=== PATIENT | female | born 1955 | race Caucasian/White ===

== ENCOUNTER → 2016-12-02 | Outpatient (CLI) | payer OTHER, MEDICAID | LOC: BHLMT 11:00 | PROVIDERS: ATTEND Internal Medicine Interventional Cardiology | DX: I50.32 Chronic diastolic (congestive) heart failure (principal); I35.1 Nonrheumatic aortic (valve) insufficiency; I10 Essential (primary) hypertension | CPT/HCPCS: 93005-PO ==

== ENCOUNTER → 2016-12-15 | Outpatient (CLI) | payer OTHER, MEDICAID | LOC: BHLMT 10:45 | PROVIDERS: ATTEND Internal Medicine Cardiovascular Disease | DX: I50.9 Heart failure, unspecified (principal) | CPT/HCPCS: 93306-PO ==

== ENCOUNTER 2017-07-21 17:35 | Emergency (ER) | payer OTHER, MEDICAID ==
[2017-07-21 19:04] LABS: ADD DIFF? YES; ADD MORPH? NO; ADD SCAN? NO; ATYPICAL LYMPHOCYTE FLAG 0 (0-99); FRAGMENT RBC FLAG 0 (0-99); HEMATOCRIT 44.1 % (38.0-47.0); HEMOGLOBIN 14.4 g/dL (12.6-16.3); LEFT SHIFT FLG 20 (0-99); LIPEMIA HEMOLYSIS FLAG 80 (0-99); MEAN CELL HEMOGLOBIN 29.6 pg (27.9-34.1); MEAN CELL HEMOGLOBIN CONCENTR. 32.7 g/dL (32.4-36.7); MEAN CELL VOLUME 90.7 fL (81.5-99.8); PLATELET CLUMPS FLAG 0 (0-99); PLATELET COUNT 384 10^3/uL (150-400); RED BLOOD CELL COUNT 4.86 10^6/uL (4.18-5.33); RED CELL DISTRIBUTION WIDTH 14.4 % (11.5-15.2)
--- NOTE | 2017-07-21 19:12 | EDPHY ---
HPI/HX/ROS/PE/MDM Narrative: CHIEF COMPLAINT: Inability to urinate HISTORY OF PRESENT ILLNESS: The patient is a chronically ill 61 y/o female with a history of multiple chronic diseases including renal insufficiency presents complaining of lack of urge to urinate and inability to urinate onset 4:00 PM, 3 hours ago. She has an extensive history including pancreatic transplant, COPD, renal insufficiency, and shingles. She notes less frequent urge to urinate over the last few days. Today, she urinated at 5:00 AM and again at 4:00 PM, both times only a small amount of urine was produce. She has associated nausea. She denies any abdominal pain, fever, or any other symptoms. She report improved edema over the past few days. She also reports lightheadedness when standing up feels that she might be dehydrated. No fever, chills, chest pain, shortness of breath, palpitations, vomiting, diarrhea, headache, lightheadedness. REVIEW OF SYSTEMS: Aside from elements discussed in the HPI, a comprehensive 10-point review of systems was reviewed and is negative. PAST MEDICAL HISTORY: Pancreatic transplant, COPD, renal insufficiency, shingles SOCIAL HISTORY: Service dog, friend at bedside, lives in [place] VITAL SIGNS: Reviewed by me GENERAL: Somewhat debilitated appearing female, resting comfortably in no respiratory distress. HEENT: Atraumatic. Eyes: No icterus, no injection. Mouth: moist mucous membranes. No erythema or lesions. Neck: supple with no adenopathy. LUNGS: Clear to auscultation bilaterally, no wheezes, rhonchi or rales. Persistent cough following deep inhalation. CARDIAC: Regular rate and rhythm, no rubs, murmurs or gallops. ABDOMEN: Soft, nontender, nondistended, bowel sounds normal. BACK: No CVA tenderness. EXTREMITIES: No trauma. No edema. Range of motion is normal throughout. NEURO: Alert and oriented, grossly nonfocal. SKIN: Warm and dry, no rash. PSYCHIATRIC: Normal mentation, no agitation. Portions of this note were transcribed by a medical technicians. I personally performed a history, physical exam, medical decision making, and confirmed accuracy of information the transcribed note. ED Course: The patient is a 61 y/o female with a history of renal insufficiency, COPD, pancreatic transplant, and shingles complaining of inability to urinate or urge to urinate for the last three hours. She noticed a decrease in her fluid intake and her urine output for the past few days. She has some nausea and abdominal pain. She denies any other symptoms Patient had IV placed. She received a L of normal saline[place] [address]. Patient's creatinine is 1.8 which is in her baseline. Urinalysis appears to be infected potentially with 25-50 white cells per high-power field. I discussed these results with the patient. She states that her urologist does not like her to take antibiotics unless she has a culture proven urinary tract infection. Patient was reassured by the relatively baseline creatinine level. She does reports he still feels somewhat lightheaded when she stands up wants her orthostatic vital signs rechecked. This was done. Patient does have a significant drop in her blood pressure, however, she starts at a baseline quite elevated systolic blood pressure. Heart rate increases slightly. She does feel somewhat symptomatic. She was offered an additional L fluid which she declined. I discussed the results of her work up with her and feel she is safe to return home. She agrees with this course of action. Discharge instructions, followup instructions, and return precautions given. MDM: Differential diagnoses for the patient's symptom complex was considered including but not limited to urinary tract infection, dehydration, acute on chronic renal insufficiency, urinary retention, outflow obstruction.. - Data Points Laboratory Results: Laboratory Results 07/21/17 18:53 07/21/17 18:53 Medications Given: Discontinued Medications Cephalexin HCl (Keflex) 500 mg PO EDNOW ONE PRN Reason: Protocol Stop: 07/21/17 20:54 Last Admin: 07/21/17 21:23 Dose: 500 mg Sodium Chloride (Ns) 1,000 mls @ 0 mls/hr IV ONCE ONE; Wide Open PRN Reason: Protocol Stop: 07/21/17 20:07 Last Admin: 07/21/17 20:11 Dose: 1,000 mls General Time Seen by Provider: 07/21/17 18:34 Initial Vital Signs: Initial Vital Signs Temperature (C) 36.7 C 07/21/17 17:40 Heart Rate 88 07/21/17 17:40 Respiratory Rate 18 07/21/17 17:40 Blood Pressure 172/98 H 07/21/17 17:40 O2 Sat (%) 92 07/21/17 17:40 O2 Delivery Mode Room Air Allergies/Adverse Reactions: metoclopramide [From Reglan] Allergy (Intermediate, Verified 07/21/17 17:50) tardic dyskinesia "all pain meds" Allergy (Intermediate, Uncoded 07/21/17 17:50) mod to severe n/v Home Medications: Medication Instructions Recorded Cephalexin [Keflex] 500 mg PO TID #21 cap 07/21/17 Pt Has List 07/21/17 Departure - Departure Disposition: Home, Routine, Self-Care Clinical Impression: Renal insufficiency, Dehydration UTI (urinary tract infection) Qualifiers: Urinary tract infection type: acute cystitis Hematuria presence: without hematuria Qualified Code(s): N30.00 - Acute cystitis without hematuria Condition: Good Instructions: Dehydration (ED), Urinary Tract Infection in Women (ED) Additional Instructions: 1. Take prescribed medications as directed. Discontinue antibiotic if results of urine culture are negative. Ensure adequate fluid intake. 2. Follow-up with your primary care provider for unimproved symptoms in 3-5 days. 3. Return to the ED for worsening of condition. Referrals: NONE *PRIMARY CARE P,. [Primary Care Provider] - As per Instructions Veronika Schultz MD [Medical Doctor] - As per Instructions Prescriptions: Cephalexin [Keflex] 500 mg PO TID #21 cap Report Scribed for: Katrin Sorensen Report Scribed by: Palak Gordon Date of Report: 07/21/17 Time of Report: 18:37
[2017-07-21 19:22] LABS: ANION GAP 13 mEq/L (8-16); CALCIUM 9.2 mg/dL (8.5-10.4); CARBON DIOXIDE 20 mEq/l (22-31); CHLORIDE 106 mEq/L (97-110); CREATININE 1.8 mg/dL (0.6-1.0); GLOMERULAR FILTRATION RATE 28; GLUCOSE 96 mg/dL (70-100); POTASSIUM 4.6 mEq/L (3.5-5.2); SODIUM 139 mEq/L (134-144)
[2017-07-21 19:43] LABS: PLATELET ESTIMATE ADEQUATE (ADEQ)
[2017-07-21] MEDS ORDERED: NS 1,000 ML IV ONE (20:06)
[2017-07-21 20:14] LABS: COLOR YELLOW; LEUKOCYTE ESTERASE,URINE 2+ (NEGATIVE); NITRITE,URINE NEGATIVE (NEGATIVE)
[2017-07-21 20:18] LABS: MUCUS TRACE /lpf (NONE-1+); WBC,URINE 25-50 /hpf (0-3)
[2017-07-21] MEDS ORDERED: CEPHALEXIN 500 MG CAP PO ONE (20:53)
[2017-07-21 21:27] VITALS: RESP 19; TEMP 98.2; O2SAT 95
[2017-07-21 21:34] VITALS: BP 204/106; PULSE 90
== END 2017-07-21 21:32 | disposition home or self-care (01) ==
DX: N30.00 Acute cystitis without hematuria (principal); E86.0 Dehydration; N28.9 Disorder of kidney and ureter, unspecified; B96.89 Other specified bacterial agents as the cause of diseases classified elsewhere; E86.9 Volume depletion, unspecified; J44.9 Chronic obstructive pulmonary disease, unspecified

== ENCOUNTER → 2017-09-14 | Outpatient (CLI) | payer OTHER, MEDICAID | LOC: BHLMT 15:30 | PROVIDERS: ATTEND Internal Medicine | DX: I50.9 Heart failure, unspecified (principal) | CPT/HCPCS: 93306-PO ==

== ENCOUNTER → 2017-10-12 | Outpatient (CLI) | payer OTHER, MEDICAID | LOC: BHLMT 11:00 | PROVIDERS: ATTEND Internal Medicine Interventional Cardiology | DX: R00.2 Palpitations (principal) | CPT/HCPCS: 93225-PO; 93226-PO ==

== ENCOUNTER → 2018-12-08 | Outpatient (CLI) | payer OTHER, MEDICAID | LOC: BHFA 14:45 | PROVIDERS: ATTEND Internal Medicine Interventional Cardiology | DX: I50.9 Heart failure, unspecified (principal) | CPT/HCPCS: 93306-PO ==

== ENCOUNTER 2019-01-06 08:03 | Observation (INO) | payer OTHER, MEDICAID ==
[2019-01-06] MEDS ORDERED: FAMOTIDINE 20 MG TAB PO ONE (08:08)
[2019-01-06] MEDS ORDERED: NS 1,000 ML IV ONE (08:08)
[2019-01-06] MEDS ORDERED: ASPIRIN EC 325 MG TAB PO ONE (08:08)
[2019-01-06] MEDS ORDERED: diphenhydrAMINE 25 MG CAP PO ONE (08:08)
[2019-01-06] MEDS ORDERED: DIAZEPAM 5 MG TAB PO ONE (08:08)
[2019-01-06 08:56] LABS: PLATELET COUNT 326 10^3/uL (150-400)
[2019-01-06] MEDS ORDERED: fentaNYL 100 MCG/2 ML INJ ONE (08:56)
[2019-01-06] MEDS ORDERED: HEPARIN 10,000 UNIT/10 ML MDV (1,000 UNIT/ML) ONE (08:56)
[2019-01-06] MEDS ORDERED: LIDOCAINE 1% 300 MG/30 ML SDV ONE (08:56)
[2019-01-06] MEDS ORDERED: VERAPAMIL 5 MG/2 ML VIAL ONE (08:56)
[2019-01-06] MEDS ORDERED: MIDAZOLAM 2 MG/2 ML VIAL ONE (08:56)
[2019-01-06] MEDS ORDERED: IOPAMIDOL (ISOVUE-370) 150 ML BTL IV ONE (08:56)
[2019-01-06 09:03] LABS: INR 0.91 (0.83-1.16); PROTIME(PATIENT) 11.9 SEC (12.0-15.0)
--- NOTE | 2019-01-06 09:53 | CPEKG ---
Test Reason : OPEN Blood Pressure : / mmHG Vent. Rate : 087 BPM Atrial Rate : 087 BPM P-R Int : 155 ms QRS Dur : 077 ms QT Int : 388 ms P-R-T Axes : 037 -12 038 degrees QTc Int : 467 ms Sinus rhythm Probable left atrial enlargement Inferior infarct, old Confirmed by Brandt Yeboah ([id number]) on 01/06/2019 9:52:59 AM Referred By: Brian Streeter Confirmed By:Brandt Yeboah
--- NOTE | 2019-01-06 11:04 | PDHPUP ---
History & Physical Update H&P update statement: This history and physical update is based on an assessment of the patient which was completed after admission or registration (within 24 hours), but prior to the surgery/procedure. H&P update: H&P reviewed & patient examined, no change in patient's condition since H&P completed
--- NOTE | 2019-01-06 11:04 | PDPROPOC ---
Sedation Plan of Care Sedation Plan of Care: vital signs stable, mental status noted, patient educated of risks, benefits, alternatives, patient can tolerate sedation ASA Classification: ASA 2 Planned drugs: fentanyl, midazolam Mallampati Score: Class 2 Mallampati Reference Image: Patient passed 3-3-2 rule?: Yes
[2019-01-06] MEDS ORDERED: ONDANSETRON 4 MG/2 ML VIAL ONE (11:46)
[2019-01-06] MEDS ORDERED: ATROPINE SULFATE 1 MG/10 ML SYR ONE (12:37)
[2019-01-06] MEDS ORDERED: NITROGLYCERIN 0.4 MG BTL SL PRN (12:49)
[2019-01-06] MEDS ORDERED: ONDANSETRON 4 MG/2 ML VIAL IVP PRN (12:49)
[2019-01-06] MEDS ORDERED: ONDANSETRON DISINTEGRATING 4 MG TAB PO PRN (12:49)
[2019-01-06] MEDS ORDERED: ATROPINE SULFATE 1 MG/10 ML SYR IVP PRN (12:49)
[2019-01-06] MEDS ORDERED: TEARS/DEXTRAN 70/HYPROMELLOSE 15 ML OPHT.BTL EACHEYE PRN (12:52)
[2019-01-06] MEDS ORDERED: NS 1,000 ML IV SCH (13:00)
--- NOTE | 2019-01-06 13:03 | PDDXCAT ---
Diagnostic Cath Note - . Date: 01/06/19 Methods Time Analyst: Ferdinand Indication: other (Aortic regurgitation with planned AVR.) - Procedure Access: right groin Procedure: left heart catheterization, coronary angiography, left ventriculogram , right heart catheterization - Materials Left Heart Cath size: 6F Left Heart Cath materials: standard multipack (JL4, JR4, pigtail) Right Heart Cath size: 7F Right Heart Cath materials: PWP catheter - Findings-Left Heart Catheterization LM: Angiographically normal. LAD: Angiographically normal. LCX: Angiographically normal. RCA: Angiographically normal. EDP: 8 mmHg LVEF: 70% Wall motion: Normal - Findings-Right Heart Catheterization RA: 8 mmHg RV: 38/4 mmHg PA: 38/14/24 mmHg O2 sat 79.0 % PAOP: 12 mmHg AO: 156/60/96 mmHg O2 sat 96.0 % CO: 7.12 L/min CI: 3.69 L/min/sq mtr Complications: None Estimated blood loss: <50ml Closure method: Angioseal Assessment: 1) Angiographically normal coronary arteries. 2) Normal left ventricular systolic function. 3) Borderline pulmonary hypertension. Plan: She is scheduled for aortic valve replacement with Dr. Elise on 01/27/2019. Patient Problems: Problems Problem Status Onset Dehydration Acute Renal insufficiency Acute
[2019-01-06] MEDS: ACETAMINOPHEN 325 MG TAB PO PRN ×2 (14:06→23:35)
[2019-01-06] MEDS: CYCLOBENZAPRINE 10 MG TAB PO SCH ×2 (15:00→23:34)
--- NOTE | 2019-01-06 15:01 | ASMTCMCOM ---
CM Note CM Note Notes: Pt is a 63 yo F who presents with aortic regurgitation underwent left and right heart cath, coronary angiography, and left ventriculogram. Cardiac rehab consult ordered, likely discharged independently with outpatient follow-up as indicated. CM available if needs arise. Plan: Independent Date Signed: 01/06/2019 03:00 PM Electronically Signed By:ESTHER Infante
[2019-01-06] MEDS ORDERED: CARBOXYMETHYLCELLULOSE 0.5% 0.4 ML DROPERETTE EACHEYE PRN (15:30)
[2019-01-06] MEDS ORDERED: NYSTATIN SUSP 500000 UNIT/5 ML UD LIQ PO SCH (16:00)
[2019-01-06] MEDS: hydrOXYzine HCL 10 MG TAB PO SCH ×2 (17:39→23:37)
[2019-01-06] MEDS: Lipase/Protease/Amylase [Creon Dr 36,000 Units Capsule] PO SCH (17:40)
[2019-01-06] MEDS ORDERED: LOSARTAN POTASSIUM 25 MG TAB PO SCH (18:00)
[2019-01-06] MEDS: lamoTRIgine 100 MG TAB PO SCH (18:17)
[2019-01-06] MEDS: MYCOPHENOLATE MOFETIL 250 MG CAP PO SCH (18:18)
[2019-01-06] MEDS ORDERED: MELATONIN 3 MG TAB PO SCH (21:00)
[2019-01-06] MEDS ORDERED: ATORVASTATIN CALCIUM 20 MG TAB PO SCH (21:00)
[2019-01-06] MEDS ORDERED: PRAZOSIN HCL 1 MG CAP PO SCH (21:00)
[2019-01-06] MEDS ORDERED: TEMAZEPAM 15 MG CAP PO SCH (21:00)
[2019-01-06] MEDS ORDERED: TIMOLOL 0.5% 15 ML OPHT.BTL LEFTEYE SCH (21:00)
[2019-01-06] MEDS ORDERED: PREDNISOLONE ACETATE LEFTEYE SCH (21:00)
[2019-01-06] MEDS: NYSTATIN POWDER 15 GM BTL TP SCH (23:37)
[2019-01-06] MEDS: TACROLIMUS 1 MG CAP PO SCH (23:38)
[2019-01-07] MEDS: CYCLOBENZAPRINE 10 MG TAB PO SCH ×2 (06:22→12:45)
[2019-01-07 07:24] VITALS: BP 123/77
[2019-01-07] MEDS ORDERED: DULoxetine 30 MG CAP PO SCH (09:00)
[2019-01-07] MEDS ORDERED: PANTOPRAZOLE SODIUM 40 MG TAB PO SCH (09:00)
[2019-01-07] MEDS ORDERED: predniSONE 5 MG TAB PO SCH (09:00)
[2019-01-07] MEDS: NYSTATIN POWDER 15 GM BTL TP SCH (09:35)
[2019-01-07] MEDS: lamoTRIgine 100 MG TAB PO SCH (09:48)
[2019-01-07] MEDS: MYCOPHENOLATE MOFETIL 250 MG CAP PO SCH (09:48)
[2019-01-07] MEDS: TACROLIMUS 1 MG CAP PO SCH (09:48)
[2019-01-07] MEDS: Lipase/Protease/Amylase [Creon Dr 36,000 Units Capsule] PO SCH ×2 (09:48→12:45)
[2019-01-07] MEDS: hydrOXYzine HCL 10 MG TAB PO SCH (09:48)
--- NOTE | 2019-01-07 10:51 | PDDCSUM ---
Discharge Summary Discharge Summary: 63-year-old female admitted for right and left heart catheterization prior to planned aortic valve replacement surgery. She has a history of hypertension, hyperlipidemia, diastolic heart failure and aortic insufficiency. She has planned aortic valve surgery with Dr. Tony Seo. She was admitted for right and left heart catheterization prior to this surgery. Patient has done well overnight. She does complain of pain in her right gluteus area. On exam, vital signs are stable, lungs clear to auscultation, CVS S1-S2 regular rate and rhythm. Right groin site was inspected, there is no bleeding or hematoma. Patient has been asked to take her bandage off and shower. Right gluteal site was also inspected, there is no hematoma but the patient does have tenderness. Patient is requesting that creatinine be checked prior to discharge, this has been ordered stat and I will be called with the results prior to discharge. Please refer to home med reconciliation, no changes in home medications Patient will continue regular follow-up with Dr. Brian Streeter. As mentioned above, she has aortic valve surgery planned with Dr. Tony Seo.
--- NOTE | 2019-01-07 12:32 | ASDISCHSUM ---
Discharge Information Plan Status:Home with No Needs Medically Cleared to Leave:01/07/2019 Discharge Date:01/07/2019 CM D/C Disposition:Home, Routine, Self-Care ADT D/C Disposition:Home, Routine, Self-Care Projected Discharge Date:01/07/2019 Transportation at D/C:Friend Discharge Delay Reason: Follow-Up Date:01/07/2019 Discharge Slot: Final Diagnosis: Placement Information Patient Contact Information Contact Name:KARYNA Relationship:Daughter Address: City: [facility] Phone: State/Zip Code: Email: Financial Information Financial Class:Medicare Primary Plan Desc:MEDICARE OUTPATIENT Primary Plan Number:[id number] Secondary Plan Desc:MEDICAID [place] Secondary Plan Number:[id number] Assessment Information BC CM Progress Note CM Note CM Note Notes: Pt is a 63 yo F who presents with aortic regurgitation underwent left and right heart cath, coronary angiography, and left ventriculogram. Cardiac rehab consult ordered, likely discharged independently with outpatient follow-up as indicated. CM available if needs arise. Plan: Independent Date Signed: 01/06/2019 03:00 PM Electronically Signed By:ESTHER Infante Intervention Information Intervention Type:XIONG-Refused Date of Service:01/07/2019 12:30 PM Patient Type:Observation Staff Member:ERIBERTO Denney, Marcia Hours: Discipline: Severity: Comment:Pt refused to sign. Left copy with pt .
[2019-01-09] MEDS ORDERED: FUROSEMIDE 40 MG TAB PO SCH (09:00)
[2019-01-09] MEDS ORDERED: SULFAMETHOX/TMP 400/80 MG 1 TAB PO SCH (09:00)
== END 2019-01-07 13:30 | disposition home or self-care (01) ==
LOC: FCATH 08:03 → F2W 12:49
PROVIDERS: ADMIT Internal Medicine Interventional Cardiology; ATTEND Internal Medicine Cardiovascular Disease
PROC: 4A023N8 Measurement of Cardiac Sampling and Pressure, Bilateral, Percutaneous Approach (ICD-10-PCS; principal; 2019-01-06)
PROC: B2111ZZ Fluoroscopy of Multiple Coronary Arteries using Low Osmolar Contrast (ICD-10-PCS; principal; 2019-01-06)
PROC: B2151ZZ Fluoroscopy of Left Heart using Low Osmolar Contrast (ICD-10-PCS; principal; 2019-01-06)
DX: I35.1 Nonrheumatic aortic (valve) insufficiency (principal); I49.1 Atrial premature depolarization; I49.3 Ventricular premature depolarization; I11.0 Hypertensive heart disease with heart failure; E78.5 Hyperlipidemia, unspecified; I50.32 Chronic diastolic (congestive) heart failure; N18.9 Chronic kidney disease, unspecified; Z98.84 Bariatric surgery status; Z94.83 Pancreas transplant status
CPT/HCPCS: 93005; 93460; C1760; J1644; J2250; J2405; J3010; Q9967; J0461

== ENCOUNTER 2019-01-27 04:53 | Inpatient (IN) | payer OTHER, MEDICAID ==
[2019-01-27] MEDS ORDERED: NOREPINEPHRINE BITARTRATE 16 MG in NS 250 ML IV ONE (06:00)
[2019-01-27] MEDS ORDERED: MANNITOL 25% 12.5 GM/50 ML VIAL IVP ONE (06:00)
[2019-01-27] MEDS ORDERED: INSULIN REGULAR HUMAN 100 UNIT in NS 100 ML IV ONE (06:00)
[2019-01-27] MEDS ORDERED: CARDIOPLEGIC SOLUTION 1,052.8 ML PF ONE (06:00)
[2019-01-27] MEDS ORDERED: PHENYLEPHRINE HCL 50 MG in NS 250 ML IV ONE (06:00)
[2019-01-27] MEDS ORDERED: AMINOCAPROIC ACID 5 GM/20 ML VIAL IV ONE (06:03)
[2019-01-27] MEDS ORDERED: MUPIROCIN 2% 22 GM OINT NS ONE (06:03)
[2019-01-27] MEDS ORDERED: CITRATE DEXTROSE SOLN 500 ML BAG MISC ONE (06:03)
[2019-01-27] MEDS ORDERED: DOBUTamine 500 MG in D5W 250 ML IV SCH (06:03)
[2019-01-27] MEDS ORDERED: LR 1,000 ML IV ONE (06:04)
[2019-01-27] MEDS ORDERED: SODIUM BICARBONATE 50 MEQ/50 ML SYR ONE (06:44)
[2019-01-27] MEDS ORDERED: PROTAMINE SULFATE 50 MG/5 ML VIAL IVP ONE (06:44)
[2019-01-27] MEDS ORDERED: ALBUMIN 5% 250 ML BOTTLE IV ONE (06:44)
[2019-01-27] MEDS ORDERED: AMINOCAPROIC ACID 5 GM/20 ML VIAL ONE (06:45)
[2019-01-27] MEDS ORDERED: MILRINONE/DEXTROSE/100 ML BAG IV ONE (06:45)
[2019-01-27] MEDS ORDERED: CALCIUM CHLORIDE 1 GM/10 ML INJ ONE (06:45)
[2019-01-27] MEDS ORDERED: NA BICARBONATE 50 MEQ/50 ML VIAL ONE ×2 (06:45→11:33)
[2019-01-27] MEDS ORDERED: AMIODARONE HCL 150 MG/3 ML VIAL ONE (06:46)
[2019-01-27] MEDS ORDERED: HEPARIN 10,000 UNIT/10 ML MDV (1,000 UNIT/ML) ONE (06:46)
[2019-01-27] MEDS ORDERED: LIDOCAINE 2% 100 MG/5 ML SYR ONE (06:46)
[2019-01-27] MEDS ORDERED: niCARdipine/NACL/200 ML BAG IV ONE (06:46)
[2019-01-27] MEDS ORDERED: CITRATE DEXTROSE SOLN 500 ML BAG ONE (06:46)
[2019-01-27] MEDS ORDERED: DOPamine/DEXTROSE 400 MG/250 ML BAG IV ONE (06:46)
[2019-01-27] MEDS ORDERED: ceFAZolin 1 GM VIAL ONE (06:47)
[2019-01-27] MEDS ORDERED: MAGNESIUM SULFATE 1 GM/2 ML VIAL ONE (06:47)
[2019-01-27] MEDS ORDERED: ADENOSINE 6 MG/2 ML VIAL ONE (06:47)
[2019-01-27] MEDS ORDERED: NITROGLYCERIN/D5W 50 MG/250 ML BOTTLE IV ONE (06:47)
[2019-01-27] MEDS ORDERED: methylPREDNISolone SOD SUCC 1 GM/8 ML VIAL ONE (06:47)
[2019-01-27] MEDS ORDERED: MIDAZOLAM 2 MG/2 ML VIAL IVP ONE (06:57)
[2019-01-27] MEDS ORDERED: NS 1,000 ML IV ONE (06:57)
--- NOTE | 2019-01-27 06:57 | PDANEPAE ---
ANE History of Present Illness 63 yo for avr ANE Past Medical History - Cardiovascular History Hx Hypertension: Yes Hx Arrhythmias: No Hx Chest Pain: No Hx Coronary Artery / Peripheral Vascular Disease: No Hx CHF / Valvular Disease: Yes Hx Palpitations: No - Pulmonary History Hx COPD: Yes Hx Asthma/Reactive Airway Disease: No Hx Recent Upper Respiratory Infection: No Hx Oxygen in Use at Home: Yes O2 in Use at Home (L/minute): 2.L 24/7 Hx Sleep Apnea: Yes Sleep Apnea Screening Result - Last Documented: Positive Pulmonary History Comment: PHTN - Neurologic History Hx Cerebrovascular Accident: No Hx Seizures: Yes Hx Dementia: No Neurologic History Comment: accident prior to 2001 - Endocrine History Hx Diabetes: No Endocrine History Comment: pt wit diabetic complications - Renal History Hx Renal Disorders: Yes Renal History Comment: stage 4 - Liver History Hx Hepatic Disorders: No - Neurological & Psychiatric Hx Hx Neurological and Psychiatric Disorders: Yes Neurological / Psychiatric History Comment: peripheral and autonomic neuropathy. Chronic depression - Cancer History Hx Cancer: No - Congenital Disorder History Hx Congenital Disorders: No - GI History Hx Gastrointestinal Disorders: Yes Gastrointestinal History Comment: complete ileus/gastroperisis - Other Health History Other Health History: macro degeneration. cataract to rigt eye. blind in left eye. bruises easily - Chronic Pain History Chronic Pain: Yes - Surgical History Prior Surgeries: bowel resection . pancreatic transplant 2001. gastric stimulator. gall bladder 1998 ANE Review of Systems Review of Systems: - Exercise capacity METS (RN): 2 METS ANE Patient History - Allergies Allergies/Adverse Reactions: metoclopramide [From Reglan] Allergy (Intermediate, Verified 07/21/17 17:50) tardic dyskinesia aspirin Allergy (Verified 01/06/19 13:44) Other-Enter Comments ibuprofen Allergy (Verified 01/06/19 13:45) Other-Enter Comments ranitidine [From Zantac] Allergy (Verified 01/06/19 13:45) "all pain meds" Allergy (Intermediate, Uncoded 07/21/17 17:50) mod to severe n/v paper tape Allergy (Uncoded 01/06/19 13:45) - Home Medications Home Medications: Acetaminophen [Tylenol ES 500 mg (*)] 1,000 mg PO BID 01/06/19 [Last Taken 01/26 21:00] Atorvastatin Calcium [Lipitor 20 mg (*)] 20 mg PO HS 01/06/19 [Last Taken 07:00] Cyclobenzaprine [Cyclobenzaprine HCl] 5 mg PO QID 01/06/19 [Last Taken 01/26/19 21:00] DULoxetine [Cymbalta 30 MG (*)] 30 mg PO DAILY 01/06/19 [Last Taken 01/26/19] Dexlansoprazole [Dexilant] 60 mg PO DAILY 01/06/19 [Last Taken 01/26/19 07:00] Furosemide [Lasix 40 MG (*)] 40 mg PO MOWEFR@01/06/19 [Last Taken 01/25/19] Herbals/Supplements -Info Only 1 ea PO DAILY 01/06/19 [Last Taken 01/26/19] Lipase/Protease/Amylase [Creon Dr 36,000 Units Capsule] 2 each PO TIDMEAL [Last Taken 01/26/19] Losartan Potassium [Cozaar 25 mg (*)] 25 mg PO DAILY@01/06/19 [Last Taken 07:00] Melatonin [Melatonin 5 mg] 10 mg PO HS 01/06/19 [Last Taken 01/26/19 21:00] Mycophenolate Mofetil [Cellcept 250 mg (RX)] 250 mg PO BID@01/06/19 [Last Taken 01/26/19 19:00] Nystatin Powder [Mycostatin Powder (RX)] 1 su TOP TID 01/06/19 [Last Taken ] Prazosin HCl [Minipress 1mg (*)] 1 mg PO HS 01/06/19 [Last Taken 01/26/19 21:00] Prednisolone Acetate/Pf [Prednisolone Acet 1% Eye Drop] 1 drop LEFTEYE HS [Last Taken 01/26/19] Sulfamethox/Tmp 400/80 mg [Sulfamethoxazole-Tmp SS] 1 each PO MOWEFR@ [Last Taken 01/25/19] Tacrolimus 3 mg PO BID 01/06/19 [Last Taken 01/26/19 19:00] Tears/Dextran 70/Hypromellose [Natural Balance Tears (*)] 1 drop EACHEYE PRN PRN 01/06/19 [Last Taken 01/26/19] Temazepam [Restoril 15 MG (*)] 15 mg PO HS 01/06/19 [Last Taken 01/26/19 21:00] Timolol 0.5% [TIMOPTIC 0.5% (*)] 1 drops LEFTEYE HS 01/06/19 [Last Taken ] hydrOXYzine HCL 10 mg PO TID 01/06/19 [Last Taken 01/26/19 21:00] lamOTRIGine [Lamotrigine] 150 mg PO BID@,18 01/06/19 [Last Taken 01/26/19 19: 00] predniSONE 5 mg PO DAILY 01/06/19 [Last Taken 01/26/19 07:00] Scopolamine 01/27/19 [Last Taken 01/26/19] - NPO status NPO Since - Liquids (Date): 01/26/19 NPO Since - Liquids (Time): 21:00 NPO Since - Solids (Date): 01/26/19 NPO Since - Solids (Time): 19:30 - Anes Hx Anes Hx: no prior problems - Smoking Hx Smoking Status: Never smoked - Family Anes Hx Family Hx Anesthesia Complications: daughter very slow to wake up ANE Labs/Vital Signs - Vital Signs Blood Pressure: 130/81 Heart Rate: 86 Respiratory Rate: 14 O2 Sat (%): 93 Height: 5 ft Weight: 98.43 kg ANE Physical Exam - Airway Neck exam: FROM Mallampati Score: Class 2 Mouth exam: normal dental/mouth exam - Pulmonary Pulmonary: no respiratory distress - Cardiovascular Cardiovascular: regular rate and rhythym - ASA Status ASA Status: IV ANE Anesthesia Plan Anesthesia Plan: general endotracheal anesthesia Lines/Monitors: arterial line, central line, SATHISH Specialized Airway: video laryngoscope
[2019-01-27] MEDS: ceFAZolin 2 GM/DEXTROSE 100 ML IV ONE ×2 (06:59→07:31)
--- NOTE | 2019-01-27 07:06 | PDHPUP ---
History & Physical Update H&P update statement: This history and physical update is based on an assessment of the patient which was completed after admission or registration (within 24 hours), but prior to the surgery/procedure. H&P update: H&P reviewed & patient examined, changes noted (worsening BLE edema , gastric stimulator shut off 01/26/19)
[2019-01-27] MEDS ORDERED: PROPOFOL/EMULSION 500 MG/50 ML BOTTLE IV ONE ×2 (07:07→09:14)
[2019-01-27] MEDS ORDERED: MIDAZOLAM 2 MG/2 ML VIAL ONE (07:07)
[2019-01-27] MEDS ORDERED: TEARS/DEXTRAN 70/HYPROMELLOSE 15 ML OPHT.BTL EACHEYE PRN (07:54)
[2019-01-27] MEDS ORDERED: POTASSIUM Cl (KCl) 10 MEQ/100 ML BAG IV ONE (09:53)
[2019-01-27] MEDS ORDERED: DEXAMETHASONE 4 MG/ML VIAL ONE (09:56)
[2019-01-27] MEDS ORDERED: ePHEDrine SULFATE 25 MG/5 ML SYR ONE (09:56)
[2019-01-27] MEDS ORDERED: PHENYLEPHRINE HCL 100 MCG/ML SYR ONE (09:56)
[2019-01-27] MEDS ORDERED: ROCURONIUM 100 MG/10 ML VIAL ONE (09:56)
[2019-01-27] MEDS ORDERED: ONDANSETRON 4 MG/2 ML VIAL ONE (10:33)
--- NOTE | 2019-01-27 10:33 | POSTOPPROG ---
Post Op Note Date of Operation: 01/27/19 Surgeon: Tony Seo Assistant: Diogo Mancilla PA-C Anesthesiologist: Lani Anesthesia: GET(General Endotracheal) Pre-op Diagnosis: AI Post-op Diagnosis: AI Procedure: s/p AVR #21 Magna bioprosthesis Inf/Abcess present in the surg proc area at time of surgery?: No EBL: Minimal Drains: Other ([address], 1 post med IRON)
[2019-01-27] MEDS ORDERED: POLYETHYLENE GLYCOL 3350 17 GM PKT PO PRN (10:36)
[2019-01-27] MEDS ORDERED: PANTOPRAZOLE SODIUM 40 MG VIAL IVP ONE (10:36)
[2019-01-27] MEDS ORDERED: ACETAMINOPHEN 325 MG TAB PO PRN (10:36)
[2019-01-27] MEDS ORDERED: BISACODYL 10 MG SUPP PR PRN (10:36)
[2019-01-27] MEDS ORDERED: D50W 25 GM/50 ML SYR IVP PRN (10:36)
[2019-01-27] MEDS ORDERED: MAGNESIUM HYDROXIDE 30 ML UDCUP PO PRN (10:36)
[2019-01-27] MEDS ORDERED: MEPERIDINE 25 MG/0.5 ML AMP IVP PRN (10:36)
[2019-01-27] MEDS ORDERED: SODIUM CL NASAL 45 ML BTL EACHNARE PRN (10:36)
[2019-01-27] MEDS ORDERED: ACETAMINOPHEN 650 MG SUPP PR PRN (10:36)
[2019-01-27] MEDS ORDERED: ALBUMIN 5% 250 ML IV PRN (10:36)
[2019-01-27] MEDS ORDERED: METOCLOPRAMIDE 10 MG/2 ML VIAL IVP PRN (10:36)
[2019-01-27] MEDS ORDERED: POTASSIUM Cl (KCl) 50 ML IV PRN (10:36)
[2019-01-27] MEDS ORDERED: CEPACOL LOZENGE PO PRN (10:36)
[2019-01-27] MEDS ORDERED: LACTULOSE 20 GM/30 ML UDCUP PO PRN (10:36)
[2019-01-27] MEDS ORDERED: NS 1,000 ML IV SCH (10:45)
[2019-01-27] MEDS ORDERED: niCARdipine/NACL 200 ML IV SCH (11:00)
--- NOTE | 2019-01-27 11:15 | PDMN ---
Medical Necessity Medical necessity: [facility] IP only surgery; cpt 82191 AVR
--- NOTE | 2019-01-27 11:54 | ASMTCASEMG ---
Living Arrangements What is your living Answers: Alone arrangement? Who do you live with? Type Of Residence What kind of residence do Answers: Apartment you live in? Discharge Plan Comments Coordination Status Comments Notes: Patient is a 63 yo female who comes to [facility] for aortic valve replacement. PT/OT/CILNICAL SCIENTIST/cardiac rehab consults ordered. D/C plan TBD. CM will follow. Date Signed: 01/27/2019 11:53 AM Electronically Signed By:Yanna Waters LCSW
[2019-01-27] MEDS: INSULIN REGULAR HUMAN 100 UNIT in NS 100 ML IV SCH (12:03)
--- NOTE | 2019-01-27 12:33 | GOP ---
[f rep st] OPERATIVE REPORT DATE OF OPERATION: 01/27/2019 SURGEON: Tony Seo MD CASKET INSPECTOR: ASHLEE Fisher PREOPERATIVE DIAGNOSIS: Severe aortic insufficiency. POSTOPERATIVE DIAGNOSIS: Severe aortic insufficiency. PROCEDURE PERFORMED: Aortic valve replacement using a 21 mm Jason Magna Ease bioprosthesis. FINDINGS: INDICATIONS: The patient is a 63-year-old woman with previous pancreas transplant, who is on chroni c immunosuppression and steroids and suffers from chronic obesity who has been experiencing progressi ve dyspnea and shortness of breath on exertion. Echocardiography shows severe aortic insufficiency wi th a slightly dilated left ventricle. She has normal coronaries. She was recommended to undergo surgi sienna aortic valve replacement. DESCRIPTION OF PROCEDURE: The patient was taken to the operating room and placed on the operating ta ble in the supine position. After induction of general anesthesia and single-lumen tracheal tube inva judie, patient was prepped and draped sterilely. Standard median sternotomy was performed. The patient was fully heparinized. She was cannulated with a Sarns 8.0 soft flow aortic cannula as well as a ori l stage venous right atrial cannula. Cardiopulmonary bypass was instituted. The cross-clamp was appli ed and the heart was arrested with 1 L of [place] solution. The aorta was opened. The trileaflet dylan ve was encountered. The leaflet edges were somewhat calcified and degenerative. The valve itself was excised. The anulus was meticulously debrided and it was sized at that point with a 21 mm Magna valve . Sutures were then placed around the anulus with pledgets on the ventricular side and the valve was seated without difficulty. The aorta was then closed in 2 layers and the cross-clamp was removed. Two right ventricular pacing wires were placed as well as 2 mediastinal chest drains. The patient was se parated from cardiopulmonary bypass without inotropic support. The post pump transesophageal echo [place] ws a normally functioning bioprosthetic valve in the aortic position and preservation of left ventric ular function. The protamine was administered and the patient decannulated. All the cannulation sites were doubly secured with Prolene suture. Once hemostasis had been achieved, the heart was covered wi th pericardium and fat and the chest was closed with #6 stainless steel wires. It should be noted otilia t there was profound osteoporosis of the sternum. We put 6 wires in. One of 7 wires had pulled throug h the manubrium and was not replaced due to bone degeneration. Once the wires were in, the sternum wa s examined and found to be stable. The wound was irrigated, then closed in layers with Vicryl suture. The patient tolerated the procedure well and was returned to the ICU in stable condition. /[id number]/MODL
[2019-01-27] MEDS: ONDANSETRON 4 MG/2 ML VIAL IVP PRN ×2 (12:58→17:55)
[2019-01-27] MEDS: fentaNYL 100 MCG/2 ML INJ IVP PRN ×3 (12:58→17:40)
[2019-01-27] MEDS ORDERED: NA BICARBONATE 50 MEQ/50 ML VIAL IV ONE (13:00)
[2019-01-27] MEDS: ceFAZolin 2 GM/DEXTROSE 100 ML IV SCH ×2 (14:45→22:08)
[2019-01-27] MEDS: ONDANSETRON DISINTEGRATING 4 MG TAB PO PRN (15:38)
[2019-01-27] MEDS ORDERED: FUROSEMIDE 20 MG/2 ML VIAL IVP ONE (17:45)
[2019-01-27] MEDS ORDERED: FUROSEMIDE 40 MG/4 ML VIAL IVP ONE ×2 (18:27→18:40)
[2019-01-27] MEDS ORDERED: FUROSEMIDE 20 MG/2 ML VIAL ONE ×2 (18:39→18:44)
--- NOTE | 2019-01-27 18:40 | PDCONSULT ---
Film Spooler Note: ASSESSMENT 63-year-old female with complex past medical history status post open AVR with postoperative respiratory failure #AVR, severe. s/p open bioprosthetic AVR # post operative respiratory failure. Initially did well post extubation but oxygen requirements have but now requiring high-flow nasal cannula 40 liters/ minute 100% FiO2 # DM 1 status post pancreatic transplant 2005 on chronic immunosuppression with tacrolimus # chronic nausea vomiting. Has gastric stimulator placed. Turned back on post surgery # CKD 4, baseline SCr # NORMA. Intolerant of CPAP and BiPAP # LVH # COPD. No PFTs in our system. Never smoker per patient. Query diagnosis # chronic hypoxemic resp failure. Prior infection and residual scarring plus possible COPD. # Obesity hypoventilation syndrome PLAN # lasix 80 IV now # If patient does not urinate and continues to fail high-flow nasal cannula will proceed with urgent endotracheal intubation # ASA 81 # Scopolamine patch, Zofran for nausea. May consider Phenergan if still with emesis after said meds # insulin drip # ppi # restart outpatient oral medications when condition improves # NPO except swabs and sips of water until respiratory status improves I was asked by Dr. Seo of cardiothoracic surgery to evaluate this patient for ICU care and respiratory failure in light of multiple medical comorbidities Chief complaint Shortness of breath HPI Bety is a very pleasant 63-year-old female with multiple medical comorbidities including type 1 diabetes status with pancreatic transplant on immunosuppression in 2001 complicated by CKD stage 4 as well as hyper emesis gravidarum with status bioprosthetic aortic valve repair via median sternotomy by Dr. Seo. Patient was extubated postoperatively noted to be hypertensive and hypoxemic. Patient placed on a Cardene drip. Patient's oxygen requirements continued to increase and was transitioned from OxyMask to high- flow nasal cannula near maximal settings. Patient complains of nausea and vomiting but denies fevers, chills hemoptysis or hematemesis. Allergies Reglan, ibuprofen, ranitidine. See EMR for full details Medication Medication reconciliation was performed. See EMR for full details Past medical history Type 1 diabetes status post pancreatic transplant 2001 complicated by CKD 4, diastolic heart failure, aortic regurgitation, hypertension, diastolic heart failure, chronic pain, chronic medius pressure in, depression, hyper emesis gravidarum, severe NORMA intolerant of CPAP, arthritis Social history Lives in [place] Family history No history of severe AI Review of systems A comprehensive 10 point review of systems was obtained is negative except as per HPI Physical exam Afebrile, 105, map 102 on Cardene drip, respiratory rate 22 satting 93% on high- flow nasal cannula 100% FiO2 40 liters/minute GEN: Mild respiratory distress, intermittently heaving resting in bed NEURO: A&Ox3, CN 2-12 GI, appropriate fluency, normal residential recall HEENT: PERRL, EOMI, MMM, OP clear NECK: supple, trachea midline CHEST midline sternotomy scar clean dry and intact CVS: rrr no m/r/g, no JVD appreciated PULM: Mild kidney a no rhonchi ABD: Protuberant soft, NT, ND, NABS EXT: 1+ bilateral lower extremity edema SKIN: warm, dry, intact, no rash PSYCH CAM negative, appropriate affect Labs Reviewed Personally reviewed interpreted radiographic images well as formal radiology reads 01/27/2019 CXR post surgery x-ray with ET tube in place, midline sternotomy wires intact, extremely low lung volumes, no large pneumothorax. Patient is critical ill due to life threatening organ dysfunction and is at high risk for decompensation and . Total critical care time, excluding procedures: 79 min which was spent evaluating the patient at bedside, coordinating care with CT surgery and nursing as well as adjusting high-flow nasal cannula bedside. Currently on 40 liters/minute, 100% FiO2 with sats low 90s
[2019-01-27] MEDS: SENNOSIDES/DOCUSATE SODIUM TAB PO SCH (20:23)
[2019-01-27] MEDS: CHLORHEXIDINE GLUCONATE 15 ML UDL PO SCH (20:52)
[2019-01-27] MEDS: MUPIROCIN 2% 22 GM OINT NS SCH (20:55)
[2019-01-27] MEDS: FAMOTIDINE 20 MG/NACL 50 ML IV SCH (20:55)
[2019-01-27] MEDS: prednisoLONE ACET 1% 5 ML OPHT.BTL LEFTEYE SCH (20:56)
[2019-01-27] MEDS: TIMOLOL 0.5% 15 ML OPHT.BTL LEFTEYE SCH (20:57)
[2019-01-28] MEDS ORDERED: SIMETHICONE 80 MG TAB CHEW PO PRN (01:15)
[2019-01-28] MEDS: fentaNYL 100 MCG/2 ML INJ IVP PRN ×2 (01:20→07:23)
[2019-01-28] MEDS: INSULIN REGULAR HUMAN 100 UNIT in NS 100 ML IV SCH (01:22)
[2019-01-28 04:17] LABS: PLATELET COUNT 191 10^3/uL (150-400)
[2019-01-28] MEDS: ceFAZolin 2 GM/DEXTROSE 100 ML IV SCH ×3 (05:44→22:48)
[2019-01-28] MEDS: ONDANSETRON 4 MG/2 ML VIAL IVP PRN (05:46)
--- NOTE | 2019-01-28 07:12 | SOAPPROG ---
SOAP Progress Note Assessment/Plan: Assessment:POD#1 AVR (21mm Magna bioprosthetic valve) Severe AI s/p AVR- Antithrombotic prophylaxis with Coumadin x 2 mo, target INR 2 -3. Will start Coumadin in 1-2 days. On ASA. Diastolic heart failure- Lasix as tolerated. Start Toprol 25mg daily. Resume Cozaar when BP tolerates. Hypertension- SBP 130-140's. Start Toprol and resume Cozaar when BP tolerates. Acute respiratory failure/NORMA (does not tolerate CPAP), on 2L home O2- Postop respiratory failure requiring HFNC. Now on 4L NC with good O2 sats. Acute expected blood loss anemia- H&H 10.1/32.0. Stable. Will follow. Chronic kidney disease (stage 4) with baseline Cr 1.5-2.2- Stable. Cr 1.6-> 1.8 with good urine output. Net -1858mls/24hrs. Lasix as tolerated. Bowel resection/gastroparesis with chronic nausea and vomiting- Gastric stimulator turned back on after surgery. Nausea and vomiting persists. Continue Scop patch and Zofran prn. DM s/p pancreatic transplant 2006- On Tacrolimus, Cellcept and Creon. Seizure disorder- Lamictal to be resumed. Peripheral neuropathy- No issues. Depression- No issues. On Cymbalta. Morbid obesity (BMI 45) Plan: D/c chest tube and bulb cameron drain. D/c [place], [place] and [place]. Start Toprol 25mg daily. Likely d/c chest drain tomorrow then will initiate Coumadin. Subjective: Patient reports good pain control. Continues to have nausea and vomiting. Objective: Vital Signs Temp Pulse Resp BP Pulse Ox 38 C 104 H 27 H 139/69 H 94 01/28/19 04:00 01/28/19 06:00 01/28/19 06:00 01/28/19 06:00 01/28/19 06:00 Laboratory Results 01/28/19 04:10 01/28/19 04:10 01/27/19 01/28/19 01/29/19 05:59 05:59 05:59 Intake Total 1577 Output Total 3435 Balance -1858 Physical Exam - Physical Exam General Appearance: WD/WN, alert, no apparent distress Neck: supple Respiratory: lungs clear, decreased breath sounds (bases), other (No wheezing, rhonchi. ) Cardiac/Chest: tachycardia, other (Regular rhythm. No murmurs or rubs. Sternum stable. Sternotomy c/d/i. ) Abdomen: normal bowel sounds, non-tender, soft Skin: normal color, warm/dry Extremities: other (Warm, 2+ lower extremity pitting edema. ) Neuro/Psych: alert, normal mood/affect, oriented x 3 ICD10 Worksheet Patient Problems: Problems Problem Status Onset Aortic insufficiency Acute S/P AVR (aortic valve replacement) Acute Dehydration Acute Renal insufficiency Acute
[2019-01-28] MEDS: SENNOSIDES/DOCUSATE SODIUM TAB PO SCH ×3 (09:26→20:45)
[2019-01-28] MEDS: CHLORHEXIDINE GLUCONATE 15 ML UDL PO SCH ×2 (09:26→20:43)
[2019-01-28] MEDS: ASPIRIN 81 MG CHEWABLE TAB PO SCH (09:26)
[2019-01-28] MEDS: PANTOPRAZOLE SODIUM 40 MG TAB PO SCH (09:26)
[2019-01-28] MEDS: MUPIROCIN 2% 22 GM OINT NS SCH ×2 (09:27→20:44)
[2019-01-28] MEDS: FAMOTIDINE 20 MG/NACL 50 ML IV SCH ×2 (09:50→20:44)
[2019-01-28] MEDS ORDERED: METOPROLOL SUCCINATE XR 25 MG TAB PO SCH (10:15)
--- NOTE | 2019-01-28 10:36 | PDINTPN ---
Firewall Security Engineer Progress Note Assessment/Plan: ASSESSMENT 63-year-old female with complex past medical history status post open AVR with postoperative respiratory failure #AVR, severe. s/p open bioprosthetic AVR # post operative respiratory failure. Required max support with HFNC, now improved with diuresis and I/S. Baseline 4 L nc # DM 1 status post pancreatic transplant 2005 on chronic immunosuppression with tacrolimus # chronic nausea vomiting. Has gastric stimulator placed. Turned back on post surgery # CKD 4, baseline SCr approximately 1.8 # NORMA. Intolerant of CPAP and BiPAP # LVH # COPD. No PFTs in our system. Never smoker per patient. Query diagnosis # chronic hypoxemic resp failure. Prior infection and residual scarring plus possible COPD. # Obesity hypoventilation syndrome PLAN # check tacrolimus level and re-initiate outpatient dosing # ongoing diuresis given hypoxemia and 2+ bilateral lower extremity edema # expect increase in serum creatinine with diuresis due to hemoconcentration up to 30% and does not reflect a true reduction in GFR # re-initiate outpatient medications # okay with ASA 81, aspirin allergies not true and will remove # Scopolamine patch, Zofran for nausea. May consider Phenergan if still with emesis after said meds # insulin drip # ppi I reviewed interpreted radiographic images well formal radiology reads 01/28/2019 CXR low lung volumes improved aeration from day prior. Bibasilar atelectasis. Support devices in appropriate position Subjective: Worsening postoperative respiratory failure improved after diuresis incentive spirometry. Patient with severe nausea now under better control today. No new fevers, chills nausea vomiting. Pain well controlled. Objective: Vital Signs Temp Pulse Resp BP Pulse Ox 37.1 C 103 H 20 141/88 H 92 01/28/19 08:00 01/28/19 09:53 01/28/19 09:53 01/28/19 09:53 01/28/19 09:53 Laboratory Results 01/28/19 04:10 01/28/19 04:10 01/27/19 01/28/19 01/29/19 05:59 05:59 05:59 Intake Total 1577 Output Total 3435 300 Balance -1858 -300 Physical Exam - Physical Exam General Appearance: no apparent distress, obese EENT: PERRL/EOMI, other (Carotid oropharynx) Neck: other (Thick neck, right IJ lines in place) Respiratory: other (Midline sternotomy scar clean dry and intact) Cardiac/Chest: normal peripheral pulses, regular rate, rhythm Abdomen: non-tender, soft Back: Normal inspection Skin: normal color, warm/dry Neuro/Psych: no motor/sensory deficits, alert, normal mood/affect ICD10 Worksheet Patient Problems: Problems Problem Status Onset Aortic insufficiency Acute S/P AVR (aortic valve replacement) Acute Dehydration Acute Renal insufficiency Acute
[2019-01-28] MEDS: HYDROCODONE/APAP 5/325 TAB PO PRN ×3 (10:47→20:43)
[2019-01-28] MEDS ORDERED: FUROSEMIDE 40 MG/4 ML VIAL IVP ONE (11:45)
[2019-01-28] MEDS: LIPASE 12,000/AMYLASE/PROTEASE (CREON) 1 CAP PO SCH ×2 (12:03→19:05)
[2019-01-28] MEDS: hydrOXYzine HCL 10 MG TAB PO SCH ×2 (16:01→22:47)
[2019-01-28] MEDS: CYCLOBENZAPRINE 10 MG TAB PO SCH ×2 (16:01→20:42)
[2019-01-28] MEDS: lamoTRIgine 100 MG TAB PO SCH (16:51)
[2019-01-28] MEDS: MYCOPHENOLATE MOFETIL 250 MG CAP PO SCH (16:53)
[2019-01-28] MEDS ORDERED: LOSARTAN POTASSIUM 25 MG TAB PO SCH (18:00)
[2019-01-28] MEDS: ATORVASTATIN CALCIUM 20 MG TAB PO SCH (20:41)
[2019-01-28] MEDS: TACROLIMUS 1 MG CAP PO SCH (20:41)
[2019-01-28] MEDS: TEMAZEPAM 15 MG CAP PO SCH (20:42)
[2019-01-28] MEDS: prednisoLONE ACET 1% 5 ML OPHT.BTL LEFTEYE SCH ×2 (20:44→21:00)
[2019-01-28] MEDS: TIMOLOL 0.5% 15 ML OPHT.BTL LEFTEYE SCH ×2 (20:45→21:00)
[2019-01-28] MEDS: MELATONIN 3 MG TAB PO SCH (21:00)
[2019-01-28] MEDS ORDERED: MELATONIN 10 MG PO SCH (21:00)
[2019-01-28] MEDS ORDERED: PRAZOSIN HCL 1 MG CAP PO SCH (21:00)
[2019-01-28] MEDS ORDERED: ALBUMIN 5% 250 ML IV ONE ×2 (23:30→23:40)
[2019-01-29] MEDS ORDERED: POTASSIUM Cl (KCl) 50 ML IV ONE (00:30)
[2019-01-29] MEDS ORDERED: 1/2 NS 500 ML IV ONE (00:30)
[2019-01-29] MEDS ORDERED: NOREPINEPHRINE BITARTRATE 16 MG in NS 250 ML IV SCH (02:00)
[2019-01-29 05:30] LABS: INR 1.17 (0.83-1.16); PROTIME(PATIENT) 14.4 SEC (12.0-15.0)
[2019-01-29] MEDS: CYCLOBENZAPRINE 10 MG TAB PO SCH ×4 (06:17→21:04)
[2019-01-29] MEDS: HYDROCODONE/APAP 5/325 TAB PO PRN ×3 (06:20→21:03)
[2019-01-29] MEDS: LIPASE 12,000/AMYLASE/PROTEASE (CREON) 1 CAP PO SCH ×3 (07:29→17:24)
--- NOTE | 2019-01-29 07:30 | SOAPPROG ---
SOAP Progress Note Assessment/Plan: Assessment:POD#2 AVR (21mm Magna bioprosthetic valve) Severe AI s/p AVR- Antithrombotic prophylaxis with Coumadin x 2 mo, target INR 2 -3. Will start Coumadin tomorrow. Postop baseline echo ordered for tomorrow. On ASA. Diastolic heart failure- Lasix as tolerated. Resume Toprol and Cozaar when BP tolerates. Hypertension- Patient actually hypotensive overnight requiring IVF and initiation of Levophed. Currently with SBP 100-110's. Resume Toprol and Cozaar when BP tolerates. Acute respiratory failure/NORMA (does not tolerate CPAP), on 2L home O2- Postop respiratory failure transiently requiring HFNC. Currently on 5L NC with good O2 sats. CXR this am showed worsening pulm edema and bilateral pleural effusions. Will follow. Acute expected blood loss anemia-H&H 8.2/25.9 (10.1/32.0). Will transfuse 1UPRBC and continue to follow. Chronic kidney disease (stage 4) with baseline Cr 1.5-2.2- Stable. Cr 1.7 with adequate urine output (1215mls/24hrs. Net +1548mls/24hrs. Lasix as tolerated. Bowel resection/gastroparesis with chronic nausea and vomiting- Gastric stimulator turned back on after surgery. Nausea and vomiting persists. Continue Scop patch and Zofran prn. DM s/p pancreatic transplant 2005- On Tacrolimus, Cellcept and Creon. Seizure disorder- On Lamictal. Peripheral neuropathy- No issues. Depression- No issues. On Cymbalta. Morbid obesity (BMI 45) Plan: Wean Levophed as tolerated. D/c chest drain. Baseline postop echo ordered for tomorrow. Start Coumadin tomorrow. Subjective: Patient reports good pain control. "I slept like a log." Objective: Vital Signs Temp Pulse Resp BP Pulse Ox 36.8 C 93 23 H 111/65 97 01/29/19 04:00 01/29/19 07:00 01/29/19 07:00 01/29/19 07:00 01/29/19 07:00 Laboratory Results 01/29/19 05:00 01/29/19 05:00 01/28/19 01/29/19 01/30/19 05:59 05:59 05:59 Intake Total 1577 2808 Output Total 3435 1260 Balance -1858 1548 PT 14.4 SEC (12.0-15.0) 01/29/19 05:00 INR 1.17 (0.83-1.16) H 01/29/19 05:00 Physical Exam - Physical Exam General Appearance: WD/WN, alert, no apparent distress Neck: supple Respiratory: lungs clear, decreased breath sounds (bases), other (No wheezing, rhonchi. ) Cardiac/Chest: regular rate, rhythm, other (No murmurs or rubs. Sternum stable. Sternotomy c/d/i. ) Abdomen: normal bowel sounds, non-tender, soft Skin: normal color, warm/dry Extremities: other (2+ lower extremity pitting edema, warm) Neuro/Psych: alert, normal mood/affect, oriented x 3 ICD10 Worksheet Patient Problems: Problems Problem Status Onset Aortic insufficiency Acute S/P AVR (aortic valve replacement) Acute Dehydration Acute Renal insufficiency Acute
[2019-01-29] MEDS ORDERED: NON-FORMULARY NEW DRUG (Dexlansoprazole [Dexilant] 60 MG) PO SCH (09:00)
[2019-01-29] MEDS ORDERED: FAMOTIDINE 20 MG/NACL 50 ML IV SCH (09:00)
[2019-01-29] MEDS: TACROLIMUS 1 MG CAP PO SCH (09:18)
[2019-01-29] MEDS: ASPIRIN 81 MG CHEWABLE TAB PO SCH (09:18)
[2019-01-29] MEDS: DULoxetine 30 MG CAP PO SCH (09:18)
[2019-01-29] MEDS: PANTOPRAZOLE SODIUM 40 MG TAB PO SCH (09:19)
[2019-01-29] MEDS: MYCOPHENOLATE MOFETIL 250 MG CAP PO SCH ×2 (09:19→17:23)
[2019-01-29] MEDS: predniSONE 5 MG TAB PO SCH (09:19)
[2019-01-29] MEDS: lamoTRIgine 100 MG TAB PO SCH ×2 (09:20→17:23)
[2019-01-29] MEDS: hydrOXYzine HCL 10 MG TAB PO SCH ×3 (09:21→22:05)
[2019-01-29] MEDS: CHLORHEXIDINE GLUCONATE 15 ML UDL PO SCH ×2 (09:22→21:05)
[2019-01-29] MEDS: MUPIROCIN 2% 22 GM OINT NS SCH (09:23)
[2019-01-29] MEDS ORDERED: FUROSEMIDE 40 MG/4 ML VIAL IVP ONE ×3 (13:54→14:15)
[2019-01-29] MEDS ORDERED: POTASSIUM CL 20 MEQ TAB PO ONE ×2 (13:55→22:45)
--- NOTE | 2019-01-29 14:01 | PDINTPN ---
Engineering Technologist Progress Note Assessment/Plan: ASSESSMENT 63-year-old female with complex past medical history status post open AVR with postoperative respiratory failure #AVR, severe. s/p open bioprosthetic AVR # post operative respiratory failure. hypervolemia, hypoventilation, shunt physiology. Declines I/S but agreeable to peep valve # DM 1 status post pancreatic transplant 2005 on chronic immunosuppression with tacrolimus # chronic nausea vomiting. Has gastric stimulator placed. Turned back on post surgery # CKD 4, baseline SCr approximately 1.8 # NORMA. Intolerant of CPAP and BiPAP # LVH # COPD. No PFTs in our system. Never smoker per patient. Query diagnosis # chronic hypoxemic resp failure. Prior infection and residual scarring plus possible COPD. # Obesity hypoventilation syndrome PLAN # lasix 60 IV x 1 now given worsening dyspnea after IVF and PRBC # continue supplemental oxygen # hold OP antihypertensives # check tacrolimus level and re-initiate dose reduced OP dose, as SCr trends down may increase back to home dosing. I image goal trough of 8. # continue pred 5 # expect increase in serum creatinine with diuresis due to hemoconcentration up to 30% and does not reflect a true reduction in GFR # okay with ASA 81, aspirin allergies not true and removed # Scopolamine patch, Zofran for nausea. May consider Phenergan if still with emesis after said meds # basal plus bolus insulin # ppi I reviewed interpreted radiographic images well formal radiology reads 01/29/19 CXR low lung volumes, large habitus, R sided effusion, pulmonary congestion, atelectasis 01/28/2019 CXR low lung volumes improved aeration from day prior. Bibasilar atelectasis. Support devices in appropriate position Subjective: Patient with hypotension overnight after BP meds, required IVF, low dose NE. PRBC this AM for anemia but subsequently with worsening dyspnea. No fevers, chills Objective: Vital Signs Temp Pulse Resp BP Pulse Ox 36.8 C 100 25 H 121/84 H 99 01/29/19 12:00 01/29/19 13:00 01/29/19 13:00 01/29/19 13:00 01/29/19 13:00 Laboratory Results 01/29/19 05:00 01/29/19 05:00 01/28/19 01/29/19 01/30/19 05:59 05:59 05:59 Intake Total 1577 2808 500 Output Total 3435 1260 425 Balance -1858 1548 75 PT 14.4 SEC (12.0-15.0) 01/29/19 05:00 INR 1.17 (0.83-1.16) H 01/29/19 05:00 Physical Exam - Physical Exam General Appearance: mild distress EENT: PERRL/EOMI, normal ENT inspection Neck: non-tender, full range of motion Respiratory: other (Mild tachypnea, decreased breath sounds) Cardiac/Chest: other (Distant heart sounds, 1+ bilateral extremity edema unable to assess JVD) Abdomen: normal bowel sounds, non-tender Back: Normal inspection Skin: normal color, warm/dry Extremities: normal range of motion, non-tender Neuro/Psych: no motor/sensory deficits, alert, normal mood/affect ICD10 Worksheet Patient Problems: Problems Problem Status Onset Aortic insufficiency Acute S/P AVR (aortic valve replacement) Acute Dehydration Acute Renal insufficiency Acute
[2019-01-29] MEDS ORDERED: FUROSEMIDE 40 MG/4 ML VIAL ONE (14:05)
--- NOTE | 2019-01-29 14:15 | ASMTCMCOM ---
CM Note CM Note Notes: Patient is POD #2 AVR. I spoke with her about d/c planning. She is amenable to SNF and requests [facility] (referral sent), although she is also well-resourced at home. It sounds like she has HCBS through Medicaid which includes both skilled and unskilled help (through [facility]). She wasn't sure of her [facility] administrative receptionist's name but says her daughter Norma has that information. I explained that we would follow her progress and make appropriate d/c arrangements. Date Signed: 01/29/2019 02:14 PM Electronically Signed By:Elma Auguste RN
[2019-01-29] MEDS ORDERED: D50W 25 GM/50 ML SYR IVP PRN (14:26)
[2019-01-29] MEDS: INSULIN LISPRO 100 UNIT/1 ML VIAL LOW SC SCH (18:19)
[2019-01-29] MEDS: ATORVASTATIN CALCIUM 20 MG TAB PO SCH (21:03)
[2019-01-29] MEDS: MELATONIN 3 MG TAB PO SCH (21:04)
[2019-01-29] MEDS: TEMAZEPAM 15 MG CAP PO SCH (21:04)
[2019-01-29] MEDS: TIMOLOL 0.5% 15 ML OPHT.BTL LEFTEYE SCH (21:05)
[2019-01-29] MEDS: prednisoLONE ACET 1% 5 ML OPHT.BTL LEFTEYE SCH (21:05)
[2019-01-29] MEDS ORDERED: AMIODARONE HCL 100 ML IV ONE (22:00)
[2019-01-29] MEDS: ONDANSETRON DISINTEGRATING 4 MG TAB PO PRN (22:07)
[2019-01-30] MEDS: HYDROCODONE/APAP 5/325 TAB PO PRN ×2 (01:50→22:37)
[2019-01-30] MEDS ORDERED: ORAL BALANCE GEL TUBE PO PRN (05:04)
[2019-01-30] MEDS: CYCLOBENZAPRINE 10 MG TAB PO SCH ×4 (05:07→22:38)
[2019-01-30] MEDS ORDERED: AMIODARONE HCL 100 ML IV ONE ×2 (05:30→08:13)
--- NOTE | 2019-01-30 07:05 | SOAPPROG ---
SOAP Progress Note Assessment/Plan: POD #3: AVR (21mm Magna bioprosthetic valve) Severe AI s/p AVR- Antithrombotic prophylaxis with Coumadin x 2 mo, target INR 2 -3. Will start Coumadin today. Postop baseline echo today. On ASA. Post-op paroxysmal AF with RVR - continue IV amiodarone with eventual transition to PO. BB in addition as tolerated by BP. Thromboprophylaxis with Coumadin. Diastolic heart failure- Lasix as tolerated. Resume Toprol and Cozaar when BP tolerates. Hypertension- Resume Toprol and Cozaar when BP tolerates. Acute respiratory failure/NORMA (does not tolerate CPAP), on 2L home O2- Postop respiratory failure transiently requiring HFNC. Currently on 3L NC with good O2 sats. CXR this am showed possible bilateral pleural effusions. Will obtain PA/ Lateral CXR to further evaluate. Acute expected blood loss anemia - 1U PRBC transfused 01/29 with good effect. Chronic kidney disease (stage 4) with baseline Cr 1.5-2.2. Currently at baseline without metabolic derangements. Monitor. Bowel resection/gastroparesis with chronic nausea and vomiting- Gastric stimulator turned back on after surgery. Nausea and vomiting persists. Continue Scop patch and Zofran prn. DM s/p pancreatic transplant 2005- On Tacrolimus, Cellcept and Creon. Seizure disorder- On Lamictal. Peripheral neuropathy- No issues. Depression- No issues. On Cymbalta. DVT prophylaxis - SCDs only. Disposition - PCU today. SNF earliest Wednesday. Subjective: Can take deeper breaths now that abdominal binder is off chest. Pain well- controlled. Has ambulated. Objective: Vital Signs Temp Pulse Resp BP Pulse Ox 37 C 102 H 22 H 105/69 93 01/30/19 04:00 01/30/19 06:00 01/30/19 06:00 01/30/19 06:00 01/30/19 06:00 Laboratory Results 01/30/19 04:50 01/30/19 04:50 01/29/19 01/30/19 01/31/19 05:59 05:59 05:59 Intake Total 2808 2065 Output Total 1260 2075 Balance 1548 -10 PT 14.4 SEC (12.0-15.0) 01/29/19 05:00 INR 1.17 (0.83-1.16) H 01/29/19 05:00 ICD10 Worksheet Patient Problems: Problems Problem Status Onset Aortic insufficiency Acute S/P AVR (aortic valve replacement) Acute Dehydration Acute Renal insufficiency Acute
[2019-01-30] MEDS ORDERED: AMIODARONE HCL 200 ML IV ONE (08:13)
[2019-01-30] MEDS: LIPASE 12,000/AMYLASE/PROTEASE (CREON) 1 CAP PO SCH ×4 (08:26→18:18)
[2019-01-30] MEDS: ASPIRIN 81 MG CHEWABLE TAB PO SCH (08:58)
[2019-01-30] MEDS: lamoTRIgine 100 MG TAB PO SCH ×2 (08:58→18:18)
[2019-01-30] MEDS: POLYETHYLENE GLYCOL 3350 17 GM PKT PO SCH (08:58)
[2019-01-30] MEDS: MYCOPHENOLATE MOFETIL 250 MG CAP PO SCH ×2 (08:59→18:34)
[2019-01-30] MEDS: hydrOXYzine HCL 10 MG TAB PO SCH ×3 (08:59→22:40)
[2019-01-30] MEDS: DULoxetine 30 MG CAP PO SCH (08:59)
[2019-01-30] MEDS: predniSONE 5 MG TAB PO SCH (08:59)
[2019-01-30] MEDS: SULFAMETHOX/TMP 400/80 MG 1 TAB PO SCH (08:59)
[2019-01-30] MEDS: INSULIN LISPRO 100 UNIT/1 ML VIAL LOW SC SCH (09:00)
[2019-01-30] MEDS ORDERED: FUROSEMIDE 40 MG TAB PO SCH (09:00)
[2019-01-30] MEDS ORDERED: TACROLIMUS 1 MG CAP PO SCH (09:00)
[2019-01-30] MEDS ORDERED: FUROSEMIDE 40 MG/4 ML VIAL IVP ONE (11:04)
[2019-01-30] MEDS ORDERED: POTASSIUM CL 20 MEQ TAB PO ONE (11:14)
[2019-01-30] MEDS: ONDANSETRON DISINTEGRATING 4 MG TAB PO PRN (12:44)
--- NOTE | 2019-01-30 12:48 | ECHO ---
[email or web address] [address] [address] Main: [phone] Echocardiography Examination Transthoracic Name: SHAYNE HARRIS MR#: [id number] Study Date: 01/30/2019 Study Time: 11:35 AM Date of : 1955 Age: 63 year(s) Height: 152.4 cm (60 in.) Weight: 102.97 kg (227 lb.) BSA: 1.97 m2 Gender: Female Examination: Echo Contrast: Image Quality: Rhythm: Normal sinus rhythm with ectopy Heart Rate: 95 bpm BP: 118 mmHg/72 mmHg Indication: Post AVR #21 Jason Magna Procedure Staff Referring Physician: Pellet Press Operator: Kiko Cisse RDCS Reading Physician: Brandt Yeboah MD Requesting Provider: Ordering Physician: Asha Rubio Indication: Post AVR #21 Jason Magna Measurements Chambers AV/MV Label Value Normal Value Label Value Normal Value LVOT Vmax 1.17 m/s (0.7m/s - 1.1m/s) AV PGmax 32 mmHg LVOTd 2.1 cm (1.8cm - 2cm) AV PGmean 15 mmHg LVOT VTI 24.2 cm (18cm - 22cm) AV Vmax 2.82 m/s LVDd, 2D 3.6 cm (3.9cm - 5.3cm) YOSI (Vmax) 1.4 cm2 LVDs, 2D 2.2 cm (2.1cm - 4cm) YOSI (VTI) 1.7 cm2 IVSd, 2D 0.8 cm (0.6cm - 1.1cm) MV E Vmax 1.24 m/s LVPWd, 2D 0.9 cm MV A Vmax 1.41 m/s LVEF, 2D 60 % (54% - 74%) MV E/A 0.88 LVOT PGmean 3 mmHg MV E/E' lateral 42.5 LVOT Vmean 0.82 m/s MV PGmean 4 mmHg LA Volume, BP 78 ml (22ml - 52ml) MV PHT 110 s LADs, 2D 3.7 cm (2.7cm - 3.8cm) MVA PHT 0 cm2 LAESV index, BP 39.6 ml/m2 MV E' lateral 0.03 m/s Additional Vessels TV/PV Label Value Normal Value Label Value Normal Value AoRoot, MM 3.1 cm (2.2cm - 3.7cm) RA Pressure 5 mmHg RVSP 37 mmHg TR Pmax 32 mmHg TR Vmax 2.85 m/s Patient: SHAYNE HARRIS Study Date: 01/30/2019 Page 1 of 3 11:35 AM PV PGmax 6 mmHg PV Vmax, Caliper 1.22 m/s (0.6m/s - 0.9m/s) Conclusions Left Ventricle: CONCLUSIONS:1)Technically limited echo secondary to body habitus.2)Normal LV size and systolic function with a LVEF of 60%.3)Diastolc dysfunction noted.4)Mild left atrial enlargement noted.5)Bioprosthetic AVR with peak and mean gradients of 31 and 15mmHg and no AI seen.6)Moderate MAC with trivial MR.7)No significant pericardial effusion noted. Findings Left Ventricle: The patient during the exam was going in and out of normal sinus and atrial fibrillation.. Left ventricle is normal in size. CONCLUSIONS: 1)Technically limited echo secondary to body habitus. 2)Normal LV size and systolic function with a LVEF of 60%. 3)Diastolc dysfunction noted. 4)Mild left atrial enlargement noted. 5)Bioprosthetic AVR with peak and mean gradients of 31 and 15mmHg and no AI seen. 6)Moderate MAC with trivial MR. 7)No significant pericardial effusion noted. There is mild concentric left ventricular hypertrophy. Cannot rule out wall motion abnormality due to poor endocardial definition. Cannot determine LAP and Diastolic Dysfunction Grade. Right Ventricle: Normal size right ventricle. Right ventricular wall thickness is normal. Left Atrium: The left atrium is mildly dilated. Right Atrium: The right atrium is normal in size. Mitral Valve: Trivial mitral regurgitation. There is mild mitral calcification. Aortic Valve: The aortic valve is a bioprosthesis measuring 21 mm. Normal functioning aortic valve prosthesis. No prosthesis regurgitation. Aortic Valve Measurements AV PGmean is 15 mmHg. Tricuspid Valve: Tricuspid valve leaflets are normal in appearance and function. Mild tricuspid regurgitation. Right Ventricular systolic pressure is measured at 37 mmHg. Pulmonary artery pressure normal. Pulmonic Valve: Pulmonic valve not well visualized. Mild pulmonic valve regurgitation is present. Aorta: The aorta is normal. The aortic root size in M-mode measures 3.1 cm. Aorta Measurements AoRoot, MM is 3.1 cm. Pericardium: A pericardial fat pad is present. No pericardial effusion. Exam Details Procedure Ordered: Echo Patient: SHAYNE HARRIS Study Date: 01/30/2019 Page 2 of 3 11:35 AM (No Signature Object) Patient: SHAYNE HARRIS Study Date: 01/30/2019 Page 3 of 3 11:35 AM [id number]
[2019-01-30] MEDS ORDERED: SCOPOLAMINE HYDROBROMIDE 1 MG/3 DAYS PATCH TD PRN (13:20)
[2019-01-30] MEDS ORDERED: AMIODARONE HCL 540 MG in D5W 300 ML IV ONE (15:00)
--- NOTE | 2019-01-30 15:17 | PDINTPN ---
Pot Room Tapper Progress Note Assessment/Plan: ASSESSMENT 63-year-old female with complex past medical history status post open AVR with postoperative respiratory failure * hypoxemia- improved- encouraged IS, OOB, etc. Not likely COPD in absence of smoking history. DC prednisone. Untreated NORMA is not helping * NORMA- declined CPAP, which often corrects even acute atelectasis. Insufficient evidence for OHS * MYRANDA improved back to baseline- would resume previous outpatient doses of progarf, tac * AVR per CT surgery * OK for floor * Objective: Vital Signs Temp Pulse Resp BP Pulse Ox 36.9 C 91 20 142/54 H 97 01/30/19 14:26 01/30/19 14:26 01/30/19 14:26 01/30/19 14:26 01/30/19 14:26 Laboratory Results 01/30/19 04:50 01/30/19 04:50 01/29/19 01/30/19 01/31/19 05:59 05:59 05:59 Intake Total 2808 2065 Output Total 1260 2075 700 Balance 1548 -10 -700 PT 14.4 SEC (12.0-15.0) 01/29/19 05:00 INR 1.17 (0.83-1.16) H 01/29/19 05:00 Physical Exam - Physical Exam General Appearance: WD/WN, alert, no apparent distress, obese EENT: PERRL/EOMI Neck: supple Respiratory: lungs clear, normal breath sounds, decreased breath sounds, No respiratory distress, No accessory muscle use Cardiac/Chest: regular rate, rhythm, No edema Abdomen: non-tender, soft, No distended Skin: normal color, warm/dry, No cyanosis Lymphatic: no adenopathy Extremities: No pedal edema Neuro/Psych: alert, normal mood/affect, oriented x 3 ICD10 Worksheet Patient Problems: Problems Problem Status Onset Aortic insufficiency Acute S/P AVR (aortic valve replacement) Acute Dehydration Acute Renal insufficiency Acute
[2019-01-30] MEDS ORDERED: WARFARIN SODIUM 2.5 MG TAB PO ONE (16:00)
[2019-01-30] MEDS: ATORVASTATIN CALCIUM 20 MG TAB PO SCH (22:38)
[2019-01-30] MEDS: MELATONIN 3 MG TAB PO SCH (22:39)
[2019-01-30] MEDS: TACROLIMUS 1 MG CAP PO SCH (22:40)
[2019-01-30] MEDS: SENNOSIDES/DOCUSATE SODIUM TAB PO SCH (22:41)
[2019-01-30] MEDS: TEMAZEPAM 15 MG CAP PO SCH (22:41)
[2019-01-30] MEDS: TIMOLOL 0.5% 15 ML OPHT.BTL LEFTEYE SCH (22:42)
[2019-01-30] MEDS: prednisoLONE ACET 1% 5 ML OPHT.BTL LEFTEYE SCH (22:43)
[2019-01-31] MEDS: HYDROCODONE/APAP 5/325 TAB PO PRN ×5 (03:43→21:08)
[2019-01-31 04:34] LABS: INR 1.17 (0.83-1.16); PROTIME(PATIENT) 14.4 SEC (12.0-15.0)
[2019-01-31] MEDS ORDERED: POTASSIUM CL 20 MEQ TAB PO ONE (06:38)
--- NOTE | 2019-01-31 06:45 | SOAPPROG ---
SOAP Progress Note Assessment/Plan: POD #4: AVR with 21mm Magna bioprosthetic valve Severe AI s/p AVR- Antithrombotic prophylaxis with Coumadin x 2 mo, target INR 2 -3. Will start Coumadin today. Baseline echo showed well-functioning aortic valve with normal LVEF. On ASA. CTs out, VPW remain and will plan for removal 02/01. Post-op paroxysmal AF with RVR - conversion to SR with amiodarone. BB added this AM. Thromboprophylaxis with Coumadin, INR goal 2-3, duration as per AVR. Acute respiratory failure with pre[op hypoxemia requiring home O2 @ 2LPM - postop respiratory failure resolved now with minimal O2 needs. PA/lateral CXR without significant pleural effusions. Acute expected blood loss anemia - Stabe s/p 1U PRBC. Chronic kidney disease (stage 4) with baseline Cr 1.5-2.2. Currently at baseline without metabolic derangements. Monitor. Gastroparesis with chronic nausea and vomiting- Gastric stimulator turned back on after surgery. Nausea and vomiting persists. Continue Scop patch and Zofran prn. DM s/p pancreatic transplant 2005 - On Tacrolimus, Cellcept and Creon. Seizure disorder- On Lamictal. Peripheral neuropathy - No issues. Depression - No issues. On Cymbalta. DVT prophylaxis - SCDs only. Disposition - PCU status. [facility] Wednesday/. Subjective: Feels well. Breathing feels easier today. Has some pain left anterior chest. Denies SOB. Objective: Vital Signs Temp Pulse Resp BP Pulse Ox 36.5 C 92 20 140/89 H 97 01/31/19 04:00 01/31/19 04:00 01/31/19 04:00 01/31/19 04:00 01/31/19 04:00 Laboratory Results 01/30/19 04:50 01/31/19 03:50 01/30/19 01/31/19 02/01/19 05:59 05:59 05:59 Intake Total 2064 782 Output Total 2074 2199 Balance -10 -1418 PT 14.4 SEC (12.0-15.0) 01/31/19 03:50 INR 1.17 (0.83-1.16) H 01/31/19 03:50 Physical Exam - Physical Exam General Appearance: WD/WN, alert, no apparent distress EENT: No scleral icterus (R), No scleral icterus (L) Neck: normal inspection Respiratory: No respiratory distress Cardiac/Chest: regular rate, rhythm Abdomen: non-tender, soft, No distended Skin: normal color, warm/dry Extremities: pedal edema Neuro/Psych: no motor/sensory deficits, alert, normal mood/affect, oriented x 3 ICD10 Worksheet Patient Problems: Problems Problem Status Onset Aortic insufficiency Acute S/P AVR (aortic valve replacement) Acute Dehydration Acute Renal insufficiency Acute
[2019-01-31] MEDS: LIPASE 12,000/AMYLASE/PROTEASE (CREON) 1 CAP PO SCH ×3 (07:27→17:33)
[2019-01-31] MEDS: CYCLOBENZAPRINE 10 MG TAB PO SCH ×4 (07:28→20:59)
[2019-01-31] MEDS: SENNOSIDES/DOCUSATE SODIUM TAB PO SCH ×2 (07:40→20:57)
[2019-01-31] MEDS: POLYETHYLENE GLYCOL 3350 17 GM PKT PO SCH (08:17)
[2019-01-31] MEDS: METOPROLOL TARTRATE 25 MG TAB PO SCH ×2 (08:19→20:59)
[2019-01-31] MEDS: TACROLIMUS 1 MG CAP PO SCH ×2 (08:19→20:58)
[2019-01-31] MEDS: ASPIRIN 81 MG CHEWABLE TAB PO SCH (08:20)
[2019-01-31] MEDS: hydrOXYzine HCL 10 MG TAB PO SCH ×3 (08:20→20:59)
[2019-01-31] MEDS: DULoxetine 30 MG CAP PO SCH (08:20)
[2019-01-31] MEDS: MYCOPHENOLATE MOFETIL 250 MG CAP PO SCH ×2 (08:20→17:33)
[2019-01-31] MEDS: lamoTRIgine 100 MG TAB PO SCH ×2 (08:20→17:33)
[2019-01-31] MEDS: AMIODARONE HCL 200 MG TAB PO SCH ×2 (08:20→20:59)
[2019-01-31] MEDS ORDERED: FUROSEMIDE 40 MG TAB PO SCH (10:30)
[2019-01-31] MEDS ORDERED: WARFARIN SODIUM 2.5 MG TAB PO ONE (16:00)
[2019-01-31] MEDS: TEMAZEPAM 15 MG CAP PO SCH (20:58)
[2019-01-31] MEDS: MELATONIN 3 MG TAB PO SCH (20:59)
[2019-01-31] MEDS: ATORVASTATIN CALCIUM 20 MG TAB PO SCH (20:59)
[2019-01-31] MEDS: prednisoLONE ACET 1% 5 ML OPHT.BTL LEFTEYE SCH (21:02)
[2019-01-31] MEDS: TIMOLOL 0.5% 15 ML OPHT.BTL LEFTEYE SCH (21:03)
[2019-02-01] MEDS: HYDROCODONE/APAP 5/325 TAB PO PRN ×2 (04:57→21:40)
[2019-02-01] MEDS: CYCLOBENZAPRINE 10 MG TAB PO SCH ×4 (04:57→21:33)
[2019-02-01] MEDS: ONDANSETRON DISINTEGRATING 4 MG TAB PO PRN ×2 (05:55→13:03)
[2019-02-01 06:49] LABS: INR 1.33 (0.83-1.16); PROTIME(PATIENT) 15.9 SEC (12.0-15.0)
--- NOTE | 2019-02-01 07:30 | SOAPPROG ---
SOAP Progress Note Assessment/Plan: POD#5: AVR with 21mm Magna bioprosthetic valve Severe AI s/p AVR- Antithrombotic prophylaxis with Coumadin x 2 mo, target INR 2 -3. Baseline echo showed well-functioning aortic valve with normal LVEF. On ASA. CTs out. VPW out today. Post-op paroxysmal AF with RVR - conversion to SR with amiodarone. BB. Thromboprophylaxis with Coumadin, INR goal 2-3, duration as per AVR. Acute respiratory failure with pre-op hypoxemia requiring home O2 @ 2LPM - postop respiratory failure resolved now with minimal O2 needs. PA/lateral CXR without significant pleural effusions. Acute expected blood loss anemia - s/p 1U PRBC. H/H dropped to 9/28.9. Stamina/ respiratory status has improved per patient so will hold off transfusion at this time. Pre-op anemia d/t CKD Chronic kidney disease (stage 4) with baseline Cr 1.5-2.2. Currently at baseline without metabolic derangements. Monitor. Gastroparesis with chronic nausea and vomiting- Gastric stimulator turned back on after surgery. Nausea and vomiting persists. Continue Scop patch and Zofran prn. DM s/p pancreatic transplant 2006 - On Tacrolimus, Cellcept and Creon. Seizure disorder- On Lamictal. Peripheral neuropathy - No issues. Depression - No issues. On Cymbalta. DVT prophylaxis - SCDs only PTOT - rec SNF Dispo VPW out today Supplement K/IV Lasix Coumadin 2.5 No transfusion unless symptomatic Recheck H/H, BMP tomorrow K @ 1400 SNF tomorrow Subjective: Left shoulder hurts, feels like incision is swollen Objective: Vital Signs Temp Pulse Resp BP Pulse Ox 36.6 C 76 14 100/61 94 02/01/19 07:18 02/01/19 07:18 02/01/19 07:18 02/01/19 07:18 02/01/19 07:18 Laboratory Results 02/01/19 06:00 02/01/19 06:00 01/31/19 02/01/19 02/02/19 05:59 05:59 05:59 Intake Total 782 1050 Output Total 2200 900 Balance -1418 150 PT 15.9 SEC (12.0-15.0) H 02/01/19 06:00 INR 1.33 (0.83-1.16) H 02/01/19 06:00 - Physical Exam General Appearance: WD/WN, alert, no apparent distress EENT: No scleral icterus (R), No scleral icterus (L) Neck: normal inspection Respiratory: No respiratory distress Cardiac/Chest: regular rate, rhythm; sternotomy - CDI, mildly tender, no overt edema Abdomen: non-tender, soft, No distended Skin: normal color, warm/dry Extremities: pedal edema 2+ Neuro/Psych: no motor/sensory deficits, alert, normal mood/affect, oriented x 3 ICD10 Worksheet Patient Problems: Problems Problem Status Onset Aortic insufficiency Acute S/P AVR (aortic valve replacement) Acute Dehydration Acute Renal insufficiency Acute
[2019-02-01] MEDS ORDERED: POTASSIUM CL 20 MEQ TAB PO ONE (07:46)
[2019-02-01] MEDS ORDERED: FUROSEMIDE 40 MG/4 ML VIAL IVP ONE (07:47)
[2019-02-01] MEDS: POLYETHYLENE GLYCOL 3350 17 GM PKT PO SCH (08:23)
[2019-02-01] MEDS: hydrOXYzine HCL 10 MG TAB PO SCH ×3 (08:24→21:34)
[2019-02-01] MEDS: ASPIRIN 81 MG CHEWABLE TAB PO SCH ×2 (08:24→11:45)
[2019-02-01] MEDS: METOPROLOL TARTRATE 25 MG TAB PO SCH ×2 (08:24→21:36)
[2019-02-01] MEDS: AMIODARONE HCL 200 MG TAB PO SCH ×2 (08:24→21:34)
[2019-02-01] MEDS: MYCOPHENOLATE MOFETIL 250 MG CAP PO SCH ×2 (08:25→17:33)
[2019-02-01] MEDS: lamoTRIgine 100 MG TAB PO SCH ×2 (08:25→17:33)
[2019-02-01] MEDS: TACROLIMUS 1 MG CAP PO SCH ×2 (08:25→21:35)
[2019-02-01] MEDS: DULoxetine 30 MG CAP PO SCH (08:25)
[2019-02-01] MEDS: SULFAMETHOX/TMP 400/80 MG 1 TAB PO SCH (08:29)
[2019-02-01] MEDS: LIPASE 12,000/AMYLASE/PROTEASE (CREON) 1 CAP PO SCH ×3 (08:29→17:33)
[2019-02-01] MEDS: SENNOSIDES/DOCUSATE SODIUM TAB PO SCH ×2 (08:31→21:36)
[2019-02-01] MEDS ORDERED: POTASSIUM CL 20 MEQ TAB PO SCH ×2 (09:00)
[2019-02-01] MEDS: traMADol 50 MG TAB PO PRN ×2 (11:44→15:47)
--- NOTE | 2019-02-01 14:23 | ASMTCMCOM ---
CM Note CM Note Notes: CM reviewed pts chart and discussed w/ ERIBERTO Dang. Anticipate d/c to SNF tomorrow. CM sent updates to [facility]. CM to follow. Plan: [facility] Date Signed: 02/01/2019 02:22 PM Electronically Signed By:ESTHER Trivedi
[2019-02-01] MEDS ORDERED: WARFARIN SODIUM 2.5 MG TAB PO ONE (16:00)
[2019-02-01] MEDS ORDERED: POTASSIUM CL 10 MEQ TAB PO ONE (17:50)
[2019-02-01] MEDS: MELATONIN 3 MG TAB PO SCH (21:35)
[2019-02-01] MEDS: TEMAZEPAM 15 MG CAP PO SCH (21:37)
[2019-02-01] MEDS: TIMOLOL 0.5% 15 ML OPHT.BTL LEFTEYE SCH (21:38)
[2019-02-01] MEDS: ATORVASTATIN CALCIUM 20 MG TAB PO SCH (21:38)
[2019-02-01] MEDS: prednisoLONE ACET 1% 5 ML OPHT.BTL LEFTEYE SCH (21:39)
[2019-02-02 04:55] LABS: INR 1.44 (0.83-1.16); PROTIME(PATIENT) 16.9 SEC (12.0-15.0)
[2019-02-02] MEDS: CYCLOBENZAPRINE 10 MG TAB PO SCH (06:02)
--- NOTE | 2019-02-02 07:03 | SOAPPROG ---
SOAP Progress Note Assessment/Plan: POD#6: AVR with 21mm Magna bioprosthetic valve Severe AI s/p AVR- Antithrombotic prophylaxis with Coumadin x 2 mo, target INR 2 -3. Baseline echo showed well-functioning aortic valve with normal LVEF. ASA deferred per patient's request secondary to gastroparesis/poorly tolerated/ ulcers. Post-op paroxysmal AF with RVR - conversion to SR with amiodarone. BB. Thromboprophylaxis with Coumadin, INR goal 2-3, duration as per AVR. Acute respiratory failure with pre-op hypoxemia requiring home O2 @ 2LPM - postop respiratory failure resolved now with minimal O2 needs. PA/lateral CXR without significant pleural effusions. Acute expected blood loss anemia - s/p 1U PRBC. Chronic kidney disease (stage 4) with baseline Cr 1.5-2.2. Currently at baseline without metabolic derangements. Monitor. Gastroparesis with chronic nausea and vomiting- Continue Scop patch and Zofran prn. DM s/p pancreatic transplant 2005 - On Tacrolimus, Cellcept and Creon. Seizure disorder- On Lamictal. Peripheral neuropathy - No issues. Depression - No issues. On Cymbalta. DVT prophylaxis - SCDs only PTOT - rec SNF Dispo SNF today Subjective: Ready to SNF Objective: Vital Signs Temp Pulse Resp BP Pulse Ox 36.7 C 70 19 113/72 94 02/02/19 04:11 02/02/19 04:11 02/02/19 04:11 02/02/19 04:11 02/02/19 04:11 Laboratory Results 02/02/19 04:20 02/02/19 04:37 02/01/19 02/02/19 02/03/19 05:59 05:59 05:59 Intake Total 1050 1505 Output Total 900 1950 Balance 150 -445 PT 16.9 SEC (12.0-15.0) H 02/02/19 04:20 INR 1.44 (0.83-1.16) H 02/02/19 04:20 - Physical Exam General Appearance: WD/WN, alert, no apparent distress EENT: No scleral icterus (R), No scleral icterus (L) Neck: normal inspection Respiratory: No respiratory distress Cardiac/Chest: regular rate, rhythm; sternotomy - CDI, mildly tender, no overt edema, occ PVC Abdomen: non-tender, soft, No distended Skin: normal color, warm/dry Extremities: pedal edema 2+ Neuro/Psych: no motor/sensory deficits, alert, normal mood/affect, oriented x 3 ICD10 Worksheet Patient Problems: Problems Problem Status Onset Aortic insufficiency Acute S/P AVR (aortic valve replacement) Acute Dehydration Acute Renal insufficiency Acute
--- NOTE | 2019-02-02 07:28 | PDDCSUM ---
Discharge Summary Discharge Summary: DATE OF ADMISSION: 01/27/19 DATE OF DISCHARGE: 02/02/19 DISPOSITION: - [facility] ACTIVITY: Instructed on sternal precautions, activity restrictions, and problems to call [employer]. ADMISSION DIAGNOSES: Severe aortic regurgitation History of pancreas transplant secondary to IDDM 2001 Chronic kidney disease stage 4, baseline Cr 1.5-2.2 Obesity Chronic diastolic heart failure Obstructive sleep apnea on nocturnal oxygen @ 2L Seizure disorder Peripheral neuropathy Anemia of chronic disease DISCHARGE DIAGNOSES: As above, plus Post-operative paroxysmal atrial fibrillation Acute on chronic respiratory insufficiency Acute blood loss anemia s/p 1x unit PRBC transfusion PROCEDURES PERFORMED: 01/27/19 ([facility]) Aortic valve replacement 21 mm Jason Magna Ease bioprosthesis 01/30/19 TTE HISTORY OF PRESENT ILLNESS: 63F with history of IDDM s/p pancreas transplant in 2001, CKD stage 4, and NORMA on nocturnal oxygen who presented for elective aortic valve replacement. Pre- operative LHC negative for coronary artery disease. HOSPITAL COURSE BY PROBLEM LIST: Severe AI s/p AVR- Antithrombotic prophylaxis with Coumadin x 2 mo, target INR 2 -3. Baseline echo showed LVEF 60%, diastolic dysfcn, well functioning bioAVR wo AI, peak 31 mmHg, mean 15 mmHg. Post-op paroxysmal AF with RVR - conversion to SR with amiodarone. BB. Thromboprophylaxis with Coumadin, INR goal 2-3, duration as per AVR. Acute respiratory failure with pre-op hypoxemia requiring home O2 @ 2LPM - postop respiratory failure resolved with minimal O2 needs. PA/lateral CXR without significant pleural effusions. Required continuous oxygen 2L at discharge. Acute expected blood loss anemia - s/p 1U PRBC. Pre-op anemia d/t CKD with baseline Hct 37-38. Asymptomatic without worsening fatigue or shortness of breath. Chronic kidney disease (stage 4) with baseline Cr 1.5-2.2 - Discharged at baseline without any metabolic derangement in hospital. IDDM s/p pancreatic transplant 2001 - Tacrolimus, Cellcept and Creon restarted post-operatively. She had some gastroparesis with chronic nausea and vomiting. Gastric stimulator turned back on after surgery. Post-op nausea and vomiting treated with as needed scopolamine patch and zofran. PERTINENT DISCHARGE CLINICAL INFORMATION: Sternotomy CDI, stable NSR HR 70 BP 113/72 SpO2 94% 2L preop wt 98 kg, discharge wt 100 kg WBC 12.3 Hgb 9.3 Hct 30.2 Plt 182 Na 136 K 4.3 Cr 1.6 INR 1.44 CONSULTANTS: [facility] MEDICATIONS ON ADMISSION: Cardiac: Atorvastatin/Prazosin/Cozaar/Lasix Transplant: Bactrim/Tacrolimus /Creon/Nystatin Powder Eyes/Herbal: Natural Balance Tears/Womens Plus Daily Formula/Timolol/ Prednisolone Eye Drops Pain/Sleep Aid:Melatonin/Restoril/Cyclobenzaprine/Tylenol Psych/Neuro: Cymbalta/Lamotrigine/Hydroxyzine GI: Dexlansoprazole Pulm: Prednisone ALLERGIES/SENSITIVITIES: Reglan, Ibuprofen, Zantac, "pain meds" DISCHARGE MEDICATIONS: CONTINUE: Cardiac: Atorvastatin Transplant: Bactrim/Tacrolimus/Creon/Nystatin Powder Eyes/Herbal: Natural Balance Tears/Womens Plus Daily Formula/Timolol/ Prednisolone Eye Drops Pain/Sleep Aid: Melatonin/Restoril/Cyclobenzaprine/Tylenol Psych/Neuro: Cymbalta/Lamotrigine/Hydroxyzine GI: Dexlansoprazole STOP these medications: Cardiac: Prazosin/Cozaar/Lasix (dose adjusted) Pulm: Prednisone (dcd by pulmonary) NEW medications: Warfarin 2.5 mg PO daily, adjustments for INR 2-3 for 8 weeks Lopressor 25 mg PO BID Amiodarone Taper (200 mg PO BID x 1 week then 200 mg PO daily x3 weeks) Lasix 60 mg PO daily until pre-op wt then continue home regimen at Lasix 40 mg PO MWF Klor-Con 20 mEq until pre-op wt then stop when returning to home Lasix Tramadol PRN Scopolamine PRN Zofran PRN FOLLOW UP APPOINTMENTS: 1. CV surgery with Dr. Longoria at [facility] on 02/14/19 at 11:30AM. 2. Cardiology with Dr. Streeter, as directed 3. INR with [facility], as directed 4. PCP, as directed 5. Cardiac rehab at [facility] per patient request, as directed FOLLOW UP TESTING: CXR prior to surgical appointment. Please bring a log of your vitals and laboratory results to your clinic visit.
[2019-02-02] MEDS: POLYETHYLENE GLYCOL 3350 17 GM PKT PO SCH (08:03)
--- NOTE | 2019-02-02 08:09 | PDIAF ---
- Diagnosis Diagnosis: s/p AVR, history of pancreas transplant Code Status: Full Code - Medication Management Additional Medication Instructions: 1) When patient returns to pre-op wt (98 kg) , change Lasix 60 mg PO daily/Klor-Con 20 mEq PO daily to home dose Lasix 40 mg PO MWF and stop potassium supplementation. Adjustments may need to be performed due to her renal function/BMP results. 2) Amiodarone Taper 200 mg PO BID x 1 week, then 200 mg PO daily x 3 weeks, then stop. Discharge Medications: electronically signed and located in the Home Medication List. [facility] Care - Routine: N/A - Orders Services needed: Registered Nurse, Certified Weighbridge Operator, Master Railway Equipment Operator , Physical Therapy, Occupational Therapy Isolation Type: None Diet Recommendation: cardiac -low fat low salt Diet Texture: Regular Texture Diet, Thin Liquids, Meds Whole w/Liquids Weigh Patient: daily Estes: Not applicable Wound Care Instructions: see additional instructions Activity/Weight Bearing Restrictions: see additional instructions Additional Instructions: CARDIAC SURGERY DISCHARGE INSTRUCTIONS Cardiac Rehabilitation Call [facility] cardiac rehab to enroll in phase 2 classes once released from rehab. Target oxygen saturation > 89%. Adjustments per cardiac rehab. Activity Restrictions Sternal precautions x 4 weeks. Avoid lifting > 10lbs with an outstretched arm. Avoid push/pull activities. No driving for 2 weeks or until cleared by surgery. Avoid prolonged standing or dangling. Elevate legs at rest. Wound Care Cleanse wounds once daily with soap and water. Avoid underwater immersion (pool, hot tub, bath) until scabs off. It is okay to leave all wounds open to air. Avoid creams or ointments until scabs off. Please log daily vital signs and bring to your next clinic visit Daily weight Resting heart rate over 1 minute Blood pressure Laboratory results (if taken) When to Call [facility] Weekly gain > 5lbs or worsening leg swelling. Resting heart rate <60 or >120. Systolic blood pressure consistently <90 or >160. Please obtain a chest xray prior to surgical appointment. Use requisition form attached to appointment card. Chest x-rays don't require an appointment. Go to the Emergency Room entrance at the [facility] location. Sign in at the computer kiosk in the entryway. You will be given a number & may sit in the waiting area until called. You will be registered and directed to Imaging on the 1st floor. This process can take up to an hour. Please allow at least 30 min before your appt to get x-ray taken. Additional Information You may use [id number] medications for iron supplementation, bowel function, or pain. Max daily dose of Tylenol 3000 mg. Lifelong antibiotic prophylaxis prior to dental, respiratory tract, or skin/ soft tissue procedures. - Labs/Radiology BMP Date: 02/04/19 (then per provider's discretion) PT/INR Date: 02/03/19 (daily until INR therapeutic then per provider's discretion; titrate for goal INR 2-3) Imaging Orders: CXR prior to [facility] appt Call or Fax Lab and Imaging Results to: Attention: Janine Starks RN @ [facility] - Follow Up Care Current Providers and Referrals: MYAH CEJA [Other] Tony Seo MD [Medical Doctor] - 02/14/19 11:30 am Brian Streeter MD [Medical Doctor] -
[2019-02-02] MEDS: lamoTRIgine 100 MG TAB PO SCH (08:10)
[2019-02-02] MEDS: hydrOXYzine HCL 10 MG TAB PO SCH (08:10)
[2019-02-02] MEDS: AMIODARONE HCL 200 MG TAB PO SCH (08:10)
[2019-02-02 08:11] VITALS: BP 106/63
[2019-02-02] MEDS: METOPROLOL TARTRATE 25 MG TAB PO SCH (08:11)
[2019-02-02] MEDS: DULoxetine 30 MG CAP PO SCH (08:12)
[2019-02-02] MEDS: MYCOPHENOLATE MOFETIL 250 MG CAP PO SCH (08:12)
[2019-02-02] MEDS: TACROLIMUS 1 MG CAP PO SCH (08:13)
[2019-02-02] MEDS ORDERED: LIPASE 24,000/AMYLASE/PROTEASE (CREON) 1 CAP PO SCH (08:15)
[2019-02-02] MEDS: SENNOSIDES/DOCUSATE SODIUM TAB PO SCH (08:52)
[2019-02-02] MEDS: LIPASE 12,000/AMYLASE/PROTEASE (CREON) 1 CAP PO SCH (08:53)
[2019-02-02] MEDS ORDERED: POTASSIUM CL 20 MEQ TAB PO SCH ×3 (09:00)
[2019-02-02] MEDS ORDERED: POTASSIUM CL 10 MEQ TAB PO SCH (09:00)
[2019-02-02] MEDS ORDERED: FUROSEMIDE 40 MG TAB PO SCH (09:00)
[2019-02-02] MEDS: HYDROCODONE/APAP 5/325 TAB PO PRN (09:07)
[2019-02-02] MEDS: TIMOLOL 0.5% 15 ML OPHT.BTL LEFTEYE SCH (09:08)
[2019-02-02] MEDS: prednisoLONE ACET 1% 5 ML OPHT.BTL LEFTEYE SCH (09:08)
--- NOTE | 2019-02-02 09:32 | ASMTLACE ---
LACE Length of stay for Answers: 4-6 days current admission Acuity / Level of Answers: Yes Care: Did the patient have an inpatient admission? Comorbidities - select Answers: Other Notes: Valve aortic replacemen t all that apply repair # of Emergency department Answers: 0 visits in the last 6 months Score: 8 Date Signed: 02/02/2019 09:32 AM Electronically Signed By:Marcia Denney RN
--- NOTE | 2019-02-02 09:36 | ASMTDCNOTE ---
Case Management Discharge Discharge Order Complete? Answers: Yes Patient to Obtain Answers: Other Notes: [facility] Medications Transportation Arranged Answers: Other Notes: w/c with O2 arranged by Neyda from [facility] with [employer] Transport will Pick (Date 02/02/2019 10:45 AM & Time) Faxed Final Orders Answers: Yes Notes: [facility] Agency/Facility Transfer Answers: Yes Notes: [facility] Report Printed & Faxed to Receiving Agency Discharge Comments Notes: 02/03/20- Case Management Note Pt discharging to [facility]. Faxed final orders. Transport arranged by Neyda with [employer]. Provided report number to RN. Date Signed: 02/02/2019 09:35 AM Electronically Signed By:Marcia Denney RN
--- NOTE | 2019-02-02 09:41 | ASDISCHSUM ---
Discharge Information Plan Status:SNF Medically Cleared to Leave:02/02/2019 Discharge Date:02/02/2019 CM D/C Disposition:Jail Facility ADT D/C Disposition:Jail Facility Projected Discharge Date:01/31/2019 11:00 AM Transportation at D/C:Wheelchair Van Discharge Delay Reason: Follow-Up Date:01/31/2019 11:00 AM Discharge Slot: Final Diagnosis: Placement Information Referral Type:*Correction/SNF Referral ID:[id number] Provider Name:[facility]//[facility] Address 1:[address] [place] [address] Address 2: City:[place] Selection Factors: State:[place] Patient Contact Information Contact Name:AUGUSTLUCVLADIMIR Relationship:Daughter Address: City: [facility] Phone: [facility]/Zip Code: Email: Financial Information Financial Class:Medicare Primary Plan Desc:MEDICARE INPATIENT Primary Plan Number:[id number] Secondary Plan Desc:[place] Secondary Plan Number:[id number] Assessment Information LACE LACE Length of stay for Answers: 4-6 days current admission Acuity / Level of Answers: Yes Care: Did the patient have an inpatient admission? Comorbidities - select Answers: Other Notes: Valve aortic replacemen t all that apply repair # of Emergency department Answers: 0 visits in the last 6 months Score: 8 Date Signed: 02/02/2019 09:32 AM Electronically Signed By:Marcia Denney RN [facility] Initial CM Assessment Living Arrangements What is your living Answers: Alone arrangement? Who do you live with? Type Of Residence What kind of residence do Answers: Apartment you live in? Discharge Plan Comments Coordination Status Comments Notes: Patient is a 63 yo female who comes to [facility] for aortic valve replacement. PT/OT/[facility]/cardiac rehab consults ordered. D/C plan TBD. CM will follow. Date Signed: 01/27/2019 11:53 AM Electronically Signed By:Yanna Waters LCSW [facility] CM Progress Note CM Note CM Note Notes: Patient is POD #2 AVR. I spoke with her about d/c planning. She is amenable to SNF and requests [facility] (referral sent), although she is also well-resourced at home. It sounds like she has HCBS through Medicaid which includes both skilled and unskilled help (through [facility]). She wasn't sure of her [facility] bottler's name but says her daughter Norma has that information. I explained that we would follow her progress and make appropriate d/c arrangements. Date Signed: 01/29/2019 02:14 PM Electronically Signed By:Elma Auguste RN [facility] CM Progress Note CM Note CM Note Notes: CM reviewed pts chart and discussed sherlyn/ ERIBERTO Dang. Anticipate d/c to SNF tomorrow. CM sent updates to [facility]. CM to follow. Plan: [facility] SNF Date Signed: 02/01/2019 02:22 PM Electronically Signed By:ESTHER Trivedi Case Management Discharge Plan Note Case Management Discharge Discharge Order Complete? Answers: Yes Patient to Obtain Answers: Other Notes: [facility] Medications Transportation Arranged Answers: Other Notes: w/c with O2 arranged by Neyda from [facility] with [employer] Transport will Pick (Date 02/02/2019 10:45 AM & Time) Faxed Final Orders Answers: Yes Notes: [facility] Agency/Facility Transfer Answers: Yes Notes: [facility] Report Printed & Faxed to Receiving Agency Discharge Comments Notes: 02/03/20 Case Management Note Pt discharging to [facility]. Faxed final orders. Transport arranged by Neyda with [employer]. Provided report number to RN. Date Signed: 02/02/2019 09:35 AM Electronically Signed By:Marcia Denney RN Intervention Information Intervention Type:*IM-Signed Date of Service:02/01/2019 10:36 AM Patient Type:Inpatient Staff Member:Gabrielle Hutchins Hours: Discipline: Severity: Comment:
[2019-02-02] MEDS ORDERED: WARFARIN SODIUM 2.5 MG TAB PO SCH (16:00)
== END 2019-02-02 11:09 | DRG 219 ==
LOC: F2W 04:53 → F2N 09:14 → F2W 01-30 14:15
PROVIDERS: ADMIT Thoracic Surgery (Cardiothoracic Vascular Surgery); ATTEND Thoracic Surgery (Cardiothoracic Vascular Surgery)
PROC: 5A1221Z Performance of Cardiac Output, Continuous (ICD-10-PCS; principal; 2019-01-27 07:15)
PROC: 30233N1 Transfusion of Nonautologous Red Blood Cells into Peripheral Vein, Percutaneous Approach (ICD-10-PCS; principal; 2019-01-27 07:15)
PROC: 02RF08Z Replacement of Aortic Valve with Zooplastic Tissue, Open Approach (ICD-10-PCS; principal; 2019-01-27 07:15)
PROC: B246ZZ4 Ultrasonography of Right and Left Heart, Transesophageal (ICD-10-PCS; 2019-01-30)
DX: I35.1 Nonrheumatic aortic (valve) insufficiency (principal); J96.21 Acute and chronic respiratory failure with hypoxia; I48.0 Paroxysmal atrial fibrillation; D62 Acute posthemorrhagic anemia; I13.0 Hypertensive heart and chronic kidney disease with heart failure and stage 1 through stage 4 chronic kidney disease, or unspecified chronic kidney disease; I50.32 Chronic diastolic (congestive) heart failure; N18.4 Chronic kidney disease, stage 4 (severe); E10.22 Type 1 diabetes mellitus with diabetic chronic kidney disease; G40.909 Epilepsy, unspecified, not intractable, without status epilepticus; G47.33 Obstructive sleep apnea (adult) (pediatric); J44.9 Chronic obstructive pulmonary disease, unspecified; E66.01 Morbid (severe) obesity due to excess calories; Z68.42 Body mass index [BMI] 45.0-49.9, adult; Z79.4 Long term (current) use of insulin; Z79.52 Long term (current) use of systemic steroids; Z94.83 Pancreas transplant status; Z98.84 Bariatric surgery status; Z99.81 Dependence on supplemental oxygen
CPT/HCPCS: 80197-90; 82435-PO; 82565-PO; 82947-PO; 83605-ER; 84132-PO; 84295-PO; 84520-PO; 85014-ER; 92526-GN; 92610-GN; 97116-GP; 97161-GP; 97166-GO; 97530-GO; 97535-GO; J0153; J0282; J0690; J1100; J1250; J1265; J1644; J1815; J1940; J2001; J2150; J2250; J2260; J2270; J2370; J2405; J2704; J2720; J2930; J3010; J3475; J3480; J7507; J7512; P9016; P9041

== ENCOUNTER → 2019-02-14 | Outpatient (CLI) | payer OTHER, MEDICAID | LOC: FIMAGING 12:42 | PROVIDERS: ATTEND Thoracic Surgery (Cardiothoracic Vascular Surgery) | DX: R05 Cough (principal); Z95.2 Presence of prosthetic heart valve; Z98.1 Arthrodesis status ==